=== PATIENT | female | born 1970 | race Caucasian/White ===

== ENCOUNTER → 2016-08-17 | Outpatient (REF) | payer OTHER ==
[~2016-08-17] MED LIST: ACET50TAOT PO; ACID1CAP PO; ACIDCAP PO; AMBI10TA PO; BENZ1GEL8 TOP; CELE-19 PO; CLINPOW TD; CO Q200C PO; COEN1POW PO; COLA100C PO; CYCL10TA PO; EMER1PAK PO; ESTE500T PO; FLUO10CA8 PO; FLUO20CA8 PO; FOLI1TAB2 PO; GILD1TAB PO; HYDR-4274 PO; MECL25CH PO; MELO7.5S PO; MULTCAP PO; NEUR100C PO; PERC5TAB6 PO; PERC7.5T3 PO; SKEL-29 PO; TRAM50TA2 PO; VITA20008 PO; VOLT1GEL24 TD; XANA0.25 PO; bcp PO
== END ==
LOC: M LAB REF 10:39
PROVIDERS: ATTEND Specialist
DX: Z01.419 Encounter for gynecological examination (general) (routine) without abnormal findings (principal); Z11.51 Encounter for screening for human papillomavirus (HPV); R87.610 Atypical squamous cells of undetermined significance on cytologic smear of cervix (ASC-US)

== ENCOUNTER → 2016-09-03 | Outpatient (CLI) | payer OTHER ==
--- NOTE | 2016-09-03 09:42 | REPMRS ---
Patient History The patient states she had a clinical breast exam in 08/2016. No known family history of cancer. Taking hormonal contraceptives for 13 years. Digital Woman Screen Mammo: September 03, 2016 - Exam #: [id number] Bilateral CC and MLO view(s) were taken. Technologist: Naomy Vanegas Technologist Prior study comparison: May 06, 2015, digital woman screen mammo performed at [facility]. May 05, 2014, digital woman screen mammo performed at [facility]. FINDINGS: There are scattered fibroglandular densities. There has been no change in the appearance of the mammogram from the prior studies. There is a mild amount of residual fibroglandular tissue which is fairly symmetric. There is no interval development of dominant mass, architectural distortion, or clustered microcalcification suggestive of malignancy. ASSESSMENT: BI-RADS/ACR category 1 mammogram. Negative. Recommendation Routine screening mammogram in 1 year (for women over age 40). This mammogram was interpreted with the aid of an FDA-approved computer-aided dectection system. Electronically Signed By: Errol Quintana MD 09/03/16 0942
== END ==
LOC: M WHC 08:13
PROVIDERS: ATTEND Specialist
DX: Z12.31 Encounter for screening mammogram for malignant neoplasm of breast (principal)

== ENCOUNTER → 2017-05-17 | Outpatient (CLI) | payer OTHER ==
[~2017-05-17] MED LIST changes: -CELE-19 PO; +CELE1CAP4 PO; -CO Q200C PO; +CO Q200C10 PO; -COLA100C PO; +COLA100C5 PO; -FOLI1TAB2 PO; +FOLI1TAB4 PO; -HYDR-4274 PO; +HYDR50TA70 PO; +MECL1CHW2 PO; -MECL25CH PO; +PERC5TAB12 PO; -PERC5TAB6 PO; +PERC7.5T11 PO; -PERC7.5T3 PO; -SKEL-29 PO; +SKEL800T97 PO; +VOLT1GEL15 TD; -VOLT1GEL24 TD
--- NOTE | 2017-06-05 01:23 | ECWPNPC ---
PATIENT NAME: TRESSA LI : 1970 GENDER: FEMALE VISIT DATE: 05/17/2017 DISCHARGE DATE: 05/17/17 1254 VISIT LOCKED DATE TIME: PHYSICIAN: JUNG ALLAN RESOURCE: JUNG ALLAN REASON FOR APPOINTMENT 1. LOW BACK PAIN W/C HISTORY OF PRESENT ILLNESS HISTORY OF PRESENT ILLNESS: PAIN THE PATIENT DESCRIBES THE PAIN... 46 YEAR OLD FEMALE PATIENT WITH HISTORY OF CHRONIC LOW BACK PAIN. PATIENT DESCRIBES THE PAIN ACHING, SHARP, STABBING, TENDER, SORE AND HAVING IT ALL THE TIME WITH A PAIN SCORE 6/10. 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 PATIENT WENT TO URGENT CARE FOLLOWING THE INCIDENT AND THEY STATED SHE HAD PULLED A MUSCLE. PATIENT HAS TRIED PHYSICAL THERAPY AND INJECTIONS IN THE PAST AND STATES THAT IT DOES NOT HELP. PATIENT RECEIVED A LOWER BACK SURGERY IN 2014 AND PATIENTS STATES THAT THE SURGERY DID NOT HELP WITH PAIN RELIEF. PATIENT STATES SHE CAN NOT PERFORM BASIC FUNCTIONS DUE TO THE SEVERE PAIN SUCH BEHIND DOWN TO TIE HER SHOES OR TO GROCERY SHOP. PATIENT DENIES UNEXPLAINABLE WEIGHT LOSS, FEVER, CHILLS, NEW CHANGES ON HER URINARY OR BOWEL CONTROL. FALL RISK SCREENING: SCREENING :NO FALLS IN THE PAST YEAR CURRENT MEDICATIONS TAKING HYDROXYZINE HCL 50 MG TABLET ORALLY EVERY OTHER NIGHT TAKING METROGEL 1 % GEL 1 APPLICATION TO AFFECTED AREA EXTERNALLY NEEDED FOR ROSACEA TAKING ZOLPIDEM TARTRATE 10 MG TABLET 1 TABLET AT BEDTIME NEEDED ORALLY ONCE A DAY TAKING XANAX 0.25 MG TABLET 1 TABLET ORALLY THREE TIMES A DAY NEEDED TAKING STOOL SOFTENER 100 MG CAPSULE ORALLY TWICE A DAY TAKING ASIA-C 1000-50 MG TABLET 1 TAB(S) ORALLY ONCE A DAY TAKING BACLOFEN 20 MG TABLET 1/2 TABLET ORALLY EVERY AM TAKING FOLIC ACID 800 MG ORALLY DAILY TAKING VITAMIN D 1 TABLET 1 TABLET ORALLY ONCE A DAY TAKING CELEBREX 100 MG CAPSULE 1 CAPSULE ORALLY TWICE A DAY TAKING TRAMADOL HCL 50 MG TABLET 1 TABLET NEEDED ORALLY Q8H MDD3 TAKING CYCLOBENZAPRINE HCL 10 MG TABLET 1 TABLET ORALLY THREE TIMES A DAY NEEDED TAKING LOESTRIN FE 07/20 1-20 MG-MCG TABLET 1 TABLET ORALLY DAILY TAKING GABAPENTIN 300 MG CAPSULE 1 CAPSULE ORALLY THREE TIMES A DAY TAKING BUPROPION HCL 75 MG TABLET 2 TABLET ORALLY BID TAKING MULTIVITAMINS TABLET 1 TABLET ORALLY ONCE A DAY TAKING ACETAMINOPHEN-500 MG 500 MG TABLETS 1-2 TABLETS ORALLY EVERY 6 HOURS NEEDED FOR PAIN NOT-TAKING FLUOXTEINE 40 40MG TABLET 1 TAB(S) ORAL ONCE A DAY NOT-TAKING MECLIZINE HCL 25 MG TABLET CHEWABLE 1 TABLET NEEDED ORALLY ONCE A DAY NOT-TAKING PERCOCET 7.5-325 MG TABLET 1/2 TABLET ORALLY ONCE A DAY NEEDED NOT-TAKING LOESTRIN FE 07/20 TAB TAKE ONE TABLET BY MOUTH EVERY DAY MEDICATION LIST REVIEWED AND RECONCILED WITH THE PATIENT PAST MEDICAL HISTORY HERNIATED DISC AND BONE SPUR BURSITIS L SHOULDER ROSACEA RAYNAUD'S FACET JOINT PROBLEM, ARTHRITIS. SEVERE CERVICAL DYSPLASIA, TREATED [facility] 08/2015 ALLERGIES CORTISONE: SWELLING: ALLERGY SURGICAL HISTORY ELBOW SURGERY-LEFT COLPOSCOPY WITH TRISHA 05/21/14 BACK SURGERY 07/07/14 COLPOSCOPY WITH TRISHA 06/20/15 SPINAL FUSION 10/2015 SOCIAL HISTORY GENERAL: TOBACCO USE ARE YOU A:NONSMOKER VAPORNO E-CIGARETTENO ALCOHOL SCREENING HOW OFTEN DID YOU HAVE A DRINK CONTAINING ALCOHOL IN THE PAST YEAR?2 TO 4 TIMES A MONTH (2 POINTS) HOW MANY DRINKS DID YOU HAVE ON A TYPICAL DAY WHEN YOU WERE DRINKING IN THE PAST YEAR?1 OR 2 DRINKS (0 POINTS) HOW OFTEN DID YOU HAVE 6 OR MORE DRINKS ON ON OCCASION IN THE PAST YEAR?NEVER (0 POINTS) POINTS0 DID YOU HAVE A DRINK CONTAINING ALCOHOL IN THE PAST YEAR?YES INTERPRETATIONNEGATIVE RECREATIONAL DRUG USE PATIENT DENIES ABUSE OR MISSUSED OF ANY MEDICATION. PATIENT DENIES USE OF ANY ILLEGAL SUBSTANCE INCLUDING MARIJUANA OR COCAINE. DRUG USE?NO RELIGIOUS [id number] YARSANISM LANGUAGE LANGUAGES SPOKEN:[place] EDUCATION LEVEL OF EDUCATION:HIGH SCHOOL LEARNING BARRIERS / SPECIAL NEEDS ABILITY TO UNDERSTAND VERBAL INSTRUCTIONS GOOD :, ABILITY TO UNDERSTAND WRITTEN INSTRUCTIONS GOOD , KNOWLEDGE OF EDUCATIONAL NEEDS/TREATMENT PLAN GOOD , ADVENTISM? NO , PLANS TO OVERCOME BARRIERS WRITTEN MATERIALS , LEARNING PREFERENCE NO PREFERENCE , ORIENTED TO PLAN OF CARE: PATIENT , PAIN MANAGEMENT PATIENT , TEACHING MATERIALS DEMONSTRATION/VERBAL INSTRUCTION , RESPONSE TO EDUCATION EXPLAINES ACCURATELY/VERBALIZES UNDERSTANDING , TEACHING MATERIALS DEMONSTRATION/VERBAL INSTRUCTION , RESPONSE TO EDUCATION EXPLAINS ACCURATELY/VERBALIZES UNDERSTANDING . PAIN CLINIC PFS, CLERGY, PUBLIC HEALTH REFERRALS PFS REFERRAL NEEDED?NO CLERGY REFERRAL NEEDED?NO PUBLIC HEALTH REFERRAL NEEDED?NO WAS THE PROVIDER NOTIFIED OF ANY PERTINENT INFO?NO HAS THE PATIENT BEEN EDUCATED REGARDING HIS/HER PLAN OF CARE?YES HAS THE PATIENT BEEN EDUCATED REGARDING PAIN, THE RISK FOR PAIN, THE IMPORTANCE OF EFFECTIVE PAIN MANAGEMENT, AND THE PAIN ASSESSMENT PROCESS?YES ADVANCE DIRECTIVES HEALTH CARE PROXY?NO WOULD YOU LIKE MORE INFORMATION?NO DO YOU HAVE A DNR?NO WOULD YOU LIKE MORE INFORMATION?NO LIVING WILL?NO WOULD YOU LIKE MORE INFORMATION?NO POWER OF EDGE STRIPPER?NO HOSPITALIZATION/MAJOR DIAGNOSTIC PROCEDURE SURGERY RELATED REVIEW OF SYSTEMS REVIEWED BY: PROVIDER: JUNG ALLAN MD . CONSTITUTIONAL: ANY CHANGE IN YOUR MEDICAL CONDITION? NO . CHILLS NO . FEVER NO . INFECTION: DO YOU HAVE NEW INFECTIONS? NO . DO YOU HAVE HISTORY OF MRSA? NO . MUSCULOSKELETAL: ANY NEW PATTERNS OF PAIN OR NUMBNESS? NO . GASTROENTEROLOGY: ANY NEW CHANGE IN BOWEL CONTROL? NO . GENITOURINARY: ANY NEW CHANGE IN BLADDER CONTROL? NO . IS THERE A CHANCE YOU COULD BE ? NO . HEMATOLOGY/LYMPH: DO YOU TAKE ANY BLOOD THINNERS? (FOR EXAMPLE- COUMADIN, PLAVIX, AGGRENOX, PLATEL, PRADAXA, OR XARELTO) NO . WHEN WAS YOUR LAST DOSE? DATE: TIME: . NEUROLOGY: HAVE YOU FALLEN IN THE PAST 6 MONTHS? NO . ANY NEW EXTREMITY NUMBNESS OR WEAKNESS? NO . CARDIOLOGY: DO YOU HAVE A PACEMAKER OR DEFIBRILLATOR? NO . RESPIRATORY: HAVE YOU BEEN SICK IN THE PAST WEEK? NO . FEVER NO . FLU LIKE SYMPTOMS? NO . COUGH NO . INTEGUMENTARY: DO YOU HAVE ANY RASHES OR OPEN SORES? NO . ALLERGIC/IMMUNO: ARE YOU ALLERGIC TO SHELLFISH OR IV DYE? NO . ANY NEW ALLERGIES? NO . PSYCHIATRIC: DO YOU HAVE THOUGHTS OF HURTING YOURSELF OR SOMEONE ELSE? NO . ARE YOU ABUSED, NEGLECTED, OR IN AN UNSAFE ENVIRONMENT? NO . ENDOCRINOLOGY: ARE YOU DIABETIC? NO . OTHER: DO YOU NEED ANY PRESCRIPTIONS? NO . IF YES, PLEASE LIST: ____ . ANY NEW PROBLEMS WITH YOUR MEDICATIONS? NO . WHEN DID YOU LAST EAT? ____ . WHEN DID YOU LAST DRINK? ____ . WHAT DID YOU LAST DRINK? ____ . NAME OF PERSON DRIVING YOU HOME? ____ . DO YOU HAVE ANY OTHER QUESTIONS OR CONCERNS NO . VITAL SIGNS WT 126.0 LBS, HT 61 IN, BMI 23.80 INDEX, BP 129/76 MM HG, HR 70 /MIN, RR 16 /MIN, TEMP 98.7 F, OXYGEN SAT % 99%, NA INITIALS TL 1123, REVIEWED BY: EM. EXAMINATION : PATIENT IS ALERT O X 3 AND COOPERATIVE. TENDERNESS IN THE LOWER BACK AND PARASPINAL MUSCLE GROUP. PATIENT LIMPING FROM THE RIGHT LEG. RIGHT LEG IS WEAKER THEN THE LEFT AT EXTENSION AND FLEXION. PATIENT ABLE TO FLEX THE BACK 20 DEGREES AND EXTEND 5 DEGREES. POSITIVE FOR PAIN AT STRAIGHT LEG RAISES AT RIGHT 30 DEGREES AND LEFT 35 DEGREES. MRI OF THE LUMBAR SPINE DONE ON 12/27/2016 SHOWS MULTILEVEL DEGENERATIVE CHANGES WELL DISC BULGES AT L2-L3, L4-L5, AND L5-S1 AND A TARLOV CYST AT S2. ASSESSMENTS INTERVERTEBRAL DISC DISORDER WITH RADICULOPATHY OF LUMBAR REGION - M51.16 (PRIMARY) INTERVERTEBRAL DISC DISORDER WITH RADICULOPATHY OF LUMBOSACRAL REGION - M51.17 POSTLAMINECTOMY SYNDROME, NOT ELSEWHERE CLASSIFIED - M96.1 TREATMENT INTERVERTEBRAL DISC DISORDER WITH RADICULOPATHY OF LUMBAR REGION NOTES: WE DISCUSSED SEVERAL ISSUES WITH MRS. LI'S PAIN MANAGEMENT CASE. AT THIS TIME THE PATIENT WILL CONTINUE WITH THE SAME MEDICATION REGIME BEFORE. DUE TO THE PATIENT STATING SHE HAS HAD REACTIONS TO STEROIDS I WOULD LIKE HER TO BE REFERRED TO A [employer] LAUNCH COMMANDER TO BE TESTED SPECIFICALLY FOR KENALOG, DEPO MEDROL, AND DEXAMETHASONE. WE DISCUSSED IN DETAIL THE DCS AND AT THIS TIME THE PATIENT WOULD LIKE TO PROCEED DUE TO NOT GETTING RELIEF FROM INJECTIONS. PATIENT IS AWARE SHE WILL NEED TO HAVE A PSYCHOLOGICAL TEST AND A THORACIC MRI. I AM REQUESTING A THORACIC MRI TO MAKE SURE THE LEADS CAN PASS THROUGH THE SPINE. PATIENT WILL FOLLOW UP IN 2 MONTHS TO DISCUSS THE MRI'S AND PSYCHOLOGICAL EVALUATION. INSTRUCTIONS WERE GIVEN, QUESTIONS WERE ANSWERED, PATIENT REPORTS UNDERSTANDING AND AGREES WITH THE PLAN. I, ISAMAR BOX, DOCUMENTED THE ABOVE INFORMATION ACTING A SCRIBE FOR DR. ALLAN. I HAVE REVIEWED THE ABOVE DOCUMENT, WRITTEN BY ISAMAR FULTON AND I VERIFY THAT IT IS ACCURATE. PROCEDURES PN WORKMANS' COMP OPINION IN YOUR OPINION, WAS THE INCIDENT THAT THE PATIENT DESCRIBED THE COMPETENT MEDICAL CAUSE OF THIS INJURY/ILLNESS? YES ARE THE PATIENT'S COMPLAINTS CONSISTENT WITH HIS/HER HISTORY OF THE INJURY/ILLNESS? YES IS THE PATIENT'S HISTORY OF THE INJURY/ILLNESS CONSISTENT WITH YOUR OBJECTIVE FINDING? YES WHAT IS THE PERCENTAGE OF TEMPORARY IMPAIRMENT? MODERATE TO MARKED = 66.7% IS THE PATIENT WORKING? NO DOCTOR ON SITE: JUNG JOY MD PROCEDURE CODES FA211 ESTABILISHED [facility]IENT [facility] FACILITY CHARGE G8427 DOC MEDS VERIFIED W/PT OR RE G8730 PAIN ASSESS POS TOOL F/U PLAN DOC DISPOSITION & COMMUNICATION FOLLOW UP 2 MONTHS ELECTRONICALLY SIGNED BY JUNG ALLAN MD ON 06/03/2017 AT 06:24 PM EST DISCLAIMER : THIS IS A VISIT SUMMARY EXTRACTED FROM THE [employer] CHART. IT IS NOT A COPY OF THE [employer] PROGRESS NOTE. ROXIE
== END ==
LOC: M PAIN 11:15
PROVIDERS: ATTEND Anesthesiology
DX: M51.16 Intervertebral disc disorders with radiculopathy, lumbar region (principal); M51.17 Intervertebral disc disorders with radiculopathy, lumbosacral region; M96.1 Postlaminectomy syndrome, not elsewhere classified; M54.5 Low back pain; G89.29 Other chronic pain; Z79.899 Other long term (current) drug therapy; Z79.891 Long term (current) use of opiate analgesic; Z88.8 Allergy status to other drugs, medicaments and biological substances

== ENCOUNTER → 2017-07-09 | Outpatient (CLI) | payer OTHER | LOC: M PAIN 08:45 | DX: G89.29 Other chronic pain (principal); M96.1 Postlaminectomy syndrome, not elsewhere classified; M54.16 Radiculopathy, lumbar region; I73.00 Raynaud's syndrome without gangrene; L71.9 Rosacea, unspecified; Z98.1 Arthrodesis status; Z79.899 Other long term (current) drug therapy; Z88.8 Allergy status to other drugs, medicaments and biological substances; Z79.891 Long term (current) use of opiate analgesic | CPT/HCPCS: G0463 ==

== ENCOUNTER → 2017-08-06 | Outpatient (CLI) | payer OTHER | LOC: M PAIN 08:30 | DX: M96.1 Postlaminectomy syndrome, not elsewhere classified (principal); M54.16 Radiculopathy, lumbar region; I73.00 Raynaud's syndrome without gangrene; Z79.899 Other long term (current) drug therapy; Z88.8 Allergy status to other drugs, medicaments and biological substances | CPT/HCPCS: G0463 ==

== ENCOUNTER → 2017-08-22 | Outpatient (REF) | payer MEDICAID ==
[2017-08-27 08:07] LABS: HPV HYBRID CAPTURE II Negative (Negative)
== END ==
LOC: M LAB REF 13:22
DX: Z12.4 Encounter for screening for malignant neoplasm of cervix (principal)
CPT/HCPCS: G0123

== ENCOUNTER → 2017-09-03 | Outpatient (CLI) | payer OTHER | LOC: M PAIN 09:30 | DX: M96.1 Postlaminectomy syndrome, not elsewhere classified (principal); M54.16 Radiculopathy, lumbar region; Z79.891 Long term (current) use of opiate analgesic; Z79.899 Other long term (current) drug therapy; Z88.8 Allergy status to other drugs, medicaments and biological substances; Z86.79 Personal history of other diseases of the circulatory system; Z87.19 Personal history of other diseases of the digestive system | CPT/HCPCS: G0463 ==

== ENCOUNTER → 2017-09-05 | Outpatient (CLI) | payer OTHER | LOC: M WHC 06:40 | DX: Z12.31 Encounter for screening mammogram for malignant neoplasm of breast (principal) | CPT/HCPCS: 77067 ==

== ENCOUNTER → 2017-10-01 | Outpatient (CLI) | payer OTHER | LOC: M PAIN 08:30 | DX: M96.1 Postlaminectomy syndrome, not elsewhere classified (principal); M54.16 Radiculopathy, lumbar region; I73.00 Raynaud's syndrome without gangrene; L71.9 Rosacea, unspecified; Z79.899 Other long term (current) drug therapy; Z88.8 Allergy status to other drugs, medicaments and biological substances | CPT/HCPCS: G0463 ==

== ENCOUNTER → 2017-10-22 | Outpatient (CLI) | payer OTHER ==
[2017-10-22 09:06] LABS: BASO % 0.7 % (0.0-1.0); EOS # 0.1 10^3/uL (0.0-0.50); EOS % 1.8 % (0.0-3.0); HEMATOCRIT 41.1 % (36.0-47.0); IMMATURE GRANULOCYTE % 0.5 % (0-3.0); LYMPH # 0.8 10^3/uL (1.5-4.5); LYMPH % 13.7 % (24.0-44.0); MEAN CORPUSCULAR HEMOGLOBIN 33.7 pg (27.0-33.0); MEAN CORPUSCULAR HGB CONC 34.1 g/dl (32.0-36.5); MONO # 0.7 10^3/uL (0.0-0.8); NEUTROPHILS # 4.4 10^3/uL (1.8-7.7); NEUTROPHILS % 72.3 % (36.0-66.0); PLATELET COUNT, AUTOMATED 314 10^3/uL (150-450); RED BLOOD COUNT 4.15 10^6/uL (4.00-5.40); RED CELL DISTRIBUTION WIDTH 11.1 % (11.5-14.5); WHITE BLOOD COUNT 6.1 10^3/uL (4.0-10.0)
[2017-10-22 11:15] LABS: ALBUMIN 3.4 GM/DL (3.2-5.2); ALKALINE PHOSPHATASE 54 U/L (45-117); ALT/SGPT 21 U/L (12-78); ANION GAP 6 MEQ/L (8-16); AST/SGOT 20 U/L (7-37); BILIRUBIN,TOTAL 0.5 MG/DL (0.2-1.0); BLOOD UREA NITROGEN 21 MG/DL (7-18); CALCIUM LEVEL 8.7 MG/DL (8.5-10.1); CARBON DIOXIDE LEVEL 26 MEQ/L (21-32); CHLORIDE LEVEL 110 MEQ/L (98-107); CHOLESTEROL LEVEL 144 MG/DL (<200); CHOLESTEROL RISK RATIO 2.666 (<5); CREATININE FOR GFR 0.77 MG/DL (0.55-1.30); GLOMERULAR FILTRATION RATE > 60.0 (>58); GLUCOSE, FASTING 69 MG/DL (70-100); HDL CHOLESTEROL 54 MG/DL (>40); LDL CHOLESTEROL 71.2 MG/DL (<100); NON-HDL-C 90 MG/DL; POTASSIUM SERUM 4.4 MEQ/L (3.5-5.1); SODIUM LEVEL 142 MEQ/L (136-145); TOTAL PROTEIN 6.8 GM/DL (6.4-8.2); TRIGLYCERIDES LEVEL 94 MG/DL (<150)
== END ==
LOC: M WUC 08:10
DX: H35.60 Retinal hemorrhage, unspecified eye (principal); Z13.220 Encounter for screening for lipoid disorders
CPT/HCPCS: 80053

== ENCOUNTER → 2017-11-12 | Outpatient (CLI) | payer OTHER | LOC: M PAIN 08:30 | DX: G89.29 Other chronic pain (principal); M96.1 Postlaminectomy syndrome, not elsewhere classified; M54.16 Radiculopathy, lumbar region; I73.00 Raynaud's syndrome without gangrene; M75.52 Bursitis of left shoulder; Z79.891 Long term (current) use of opiate analgesic; Z79.899 Other long term (current) drug therapy; Z98.1 Arthrodesis status; Z88.8 Allergy status to other drugs, medicaments and biological substances | CPT/HCPCS: G0463 ==

== ENCOUNTER → 2017-12-17 | Outpatient (CLI) | payer OTHER | LOC: M PAIN 14:15 | DX: M46.96 Unspecified inflammatory spondylopathy, lumbar region (principal); M47.816 Spondylosis without myelopathy or radiculopathy, lumbar region; M96.1 Postlaminectomy syndrome, not elsewhere classified; G89.29 Other chronic pain; L71.9 Rosacea, unspecified; I73.00 Raynaud's syndrome without gangrene; Z79.899 Other long term (current) drug therapy; Z88.8 Allergy status to other drugs, medicaments and biological substances | CPT/HCPCS: G0463 ==

== ENCOUNTER → 2018-01-29 | Outpatient (CLI) | payer OTHER ==
[~2018-01-29] MED LIST changes: -ACET50TAOT PO; -ACID1CAP PO; -ACIDCAP PO; -AMBI10TA PO; -BENZ1GEL8 TOP; +BUPIVACAINE HCL 0.25% 30 ML VIAL As Ordered; -CELE1CAP4 PO; -CLINPOW TD; -CO Q200C10 PO; -COEN1POW PO; -COLA100C5 PO; -CYCL10TA PO; -EMER1PAK PO; -ESTE500T PO; -FLUO10CA8 PO; -FLUO20CA8 PO; -FOLI1TAB4 PO; -GILD1TAB PO; -HYDR50TA70 PO; +ISOVUE-M 300 61% 15ML VIAL (Q9967) As Ordered; +LIDOCAINE 1% SDV INJ 30 ML VIAL As Ordered; -MECL1CHW2 PO; -MELO7.5S PO; +MIDAZOLAM INJ 2 MG/2 ML VIAL (J2250) As Ordered; -MULTCAP PO; -NEUR100C PO; -PERC5TAB12 PO; -PERC7.5T11 PO; -SKEL800T97 PO; -TRAM50TA2 PO; -VITA20008 PO; -VOLT1GEL15 TD; -XANA0.25 PO; -bcp PO; +dexameTHASONE 10 MG/1 ML VIAL PRES.FREE (J1100) As Ordered; +fentaNYL 100 MCG/2 ML INJECTION (J3010) As Ordered
== END ==
LOC: M PAIN 13:00
DX: G89.29 Other chronic pain (principal); M47.816 Spondylosis without myelopathy or radiculopathy, lumbar region; M47.817 Spondylosis without myelopathy or radiculopathy, lumbosacral region; I73.00 Raynaud's syndrome without gangrene; L71.9 Rosacea, unspecified; Z79.899 Other long term (current) drug therapy; Z88.8 Allergy status to other drugs, medicaments and biological substances
CPT/HCPCS: J1100

== ENCOUNTER → 2018-02-12 | Outpatient (CLI) | payer OTHER | LOC: M PAIN 15:15 | DX: M46.1 Sacroiliitis, not elsewhere classified (principal); M96.1 Postlaminectomy syndrome, not elsewhere classified; I73.00 Raynaud's syndrome without gangrene; L71.9 Rosacea, unspecified; Z79.899 Other long term (current) drug therapy; Z88.8 Allergy status to other drugs, medicaments and biological substances | CPT/HCPCS: G0463 ==

== ENCOUNTER → 2018-05-15 | Outpatient (CLI) | payer OTHER | LOC: M PAIN 10:00 | DX: G89.29 Other chronic pain (principal); M46.1 Sacroiliitis, not elsewhere classified; I73.00 Raynaud's syndrome without gangrene; L71.9 Rosacea, unspecified; Z79.899 Other long term (current) drug therapy; Z88.8 Allergy status to other drugs, medicaments and biological substances | CPT/HCPCS: J1100 ==

== ENCOUNTER → 2018-05-27 | Outpatient (CLI) | payer OTHER | LOC: M PAIN 08:45 | DX: M46.1 Sacroiliitis, not elsewhere classified (principal); M96.1 Postlaminectomy syndrome, not elsewhere classified; I73.00 Raynaud's syndrome without gangrene; L71.9 Rosacea, unspecified; Z79.899 Other long term (current) drug therapy; Z88.8 Allergy status to other drugs, medicaments and biological substances | CPT/HCPCS: G0463 ==

== ENCOUNTER → 2018-07-08 | Outpatient (CLI) | payer OTHER ==
[~2018-07-08] MED LIST changes: +ACET500T15 PO; +ACID1CAP PO; +ACIDCAP PO; +AMBI10TA PO; +BENZ1GEL8 TOP; -BUPIVACAINE HCL 0.25% 30 ML VIAL As Ordered; +CELE1CAP4 PO; +CLINPOW TD; +CO Q200C10 PO; +COEN1POW PO; +COLA100C5 PO; +CYCL10TA PO; +EMER1PAK PO; +ESTE500T PO; +FLUO10CA8 PO; +FLUO20CA8 PO; +FOLI1TAB11 PO; +GILD1TAB PO; +HYDR50TA70 PO; -ISOVUE-M 300 61% 15ML VIAL (Q9967) As Ordered; -LIDOCAINE 1% SDV INJ 30 ML VIAL As Ordered; +MECL1CHW2 PO; +MELO7.5S PO; -MIDAZOLAM INJ 2 MG/2 ML VIAL (J2250) As Ordered; +MULTCAP PO; +NEUR100C PO; +PERC5TAB12 PO; +PERC7.5T11 PO; +SKEL800T97 PO; +TRAM50TA2 PO; +VITA20008 PO; +VOLT1GEL15 TD; +XANA0.25 PO; +bcp PO; -dexameTHASONE 10 MG/1 ML VIAL PRES.FREE (J1100) As Ordered; -fentaNYL 100 MCG/2 ML INJECTION (J3010) As Ordered
--- NOTE | 2018-07-08 11:43 | REP ---
MR LUMBAR SPINE WITHOUT CONTRAST: HISTORY: Back pain. Comparison 12/27/2017. Decreased signal intensity on T2-weighted images is present in the L3-4 and L4-5 intervertebral discs. The disc is decreased in height. These findings are consistent with disc degeneration. There is no disc bulge or herniation at the L1-2 level. The L1 nerves exit the neural foramina without compression. A diffuse disc bulge is present at the L2-3 level. There is hypertrophy of the ligamenta flava and posterior articulating facets. These findings produce minimal central canal stenosis. The L2 nerves exit the neural foramina without compression. The patient is status post L3-5 posterior spinal fusion and laminectomy. Metal hardware is present. There is no disc bulge or herniation at the L3-4 level. There is hypertrophy of the posterior articulating facets. The L3 nerves exit the neural foramina without compression. There is no disc bulge or herniation at the L4-5 level. There is hypertrophy of the posterior articulating facets. The L4 nerves exit the neural foramina without compression. A diffuse disc bulge is present at the L5-S1 level. There is minimal compression of the thecal sac. There is hypertrophy of the posterior articulating facets. The L5 nerves exit the neural foramina without compression. The conus medullaris is normal in appearance terminating at the level of the L1-2 intervertebral disc. A Tarlov cyst is present at the S2 level. Normal signal intensity is present in the lumbar vertebral bodies. There is no subluxation. A small fluid collection consistent with a seroma is present in the midline posterior subcutaneous tissue. This measures 1 cm in transverse by 0.3 cm in AP by 5 cm in cephalocaudal dimensions. IMPRESSION: 1. Minimal central canal stenosis at the L2-3 level secondary to disc bulge, ligamentous and facet hypertrophy. 2. The patient is status post L3-5 posterior spinal fusion and laminectomy. There is anatomic alignment. 3. Diffuse disc bulge at the L5-S1 level with minimal thecal sac compression. 4. There is a small seroma in the posterior subcutaneous tissue that is slightly decreased in size compared to the previous study. Electronically Signed by Mckinley Steve MD 07/08/2018 11:59 A
--- NOTE | 2018-07-08 11:49 | REP ---
MR THORACIC SPINE WITHOUT CONTRAST: HISTORY: Back pain. COMPARISON: 06/25/2017. A small right paracentral disc protrusion is present at the T2-3 level. There is minimal effacement of the thecal sac without spinal cord compression. The T2 neural foramina are patent. A small central disc protrusion is present at the T3-4 level. There is minimal effacement of the thecal sac without spinal cord compression. The T3 neural foramina are patent. A small left paracentral disc protrusion is present at the T4-5 level. There is minimal effacement of the thecal sac without spinal cord compression. The T4 neural foramina are patent. There is no other disc bulge or herniation. The remaining neural foramina are patent. The spinal cord is normal in signal intensity. Increased signal intensity on T2-weighted images is present in the superior endplate of the T8 vertebral body. This represents degenerative change. Normal signal intensity is present in the remaining thoracic vertebral bodies. IMPRESSION: Small disc protrusions at the T2-3 through T4-5 levels without spinal cord compression. The disc protrusion at the T2-3 level is a new finding. Electronically Signed by Mckinley Steve MD 07/08/2018 11:57 A
== END ==
LOC: M RAD 09:21
PROVIDERS: ATTEND Nurse Practitioner Family
DX: M96.1 Postlaminectomy syndrome, not elsewhere classified (principal); M51.06 Intervertebral disc disorders with myelopathy, lumbar region

== ENCOUNTER → 2018-08-04 | Outpatient (CLI) | payer OTHER ==
--- NOTE | 2018-08-16 23:59 | ECWPNPC ---
PATIENT NAME: TRESSA LI : 1970 GENDER: FEMALE VISIT DATE: 08/04/2018 DISCHARGE DATE: 08/04/18 1610 VISIT LOCKED DATE TIME: PHYSICIAN: JUNG ALLAN MD RESOURCE: JUNG ALLAN MD REASON FOR APPOINTMENT 1. W/C DCS HISTORY OF PRESENT ILLNESS HISTORY OF PRESENT ILLNESS: PAIN THE PATIENT DESCRIBES THE PAIN... 47 YEAR OLD FEMALE PATIENT WITH A HISTORY OF CHRONIC LOW BACK PAIN. THE PATIENT DESCRIBES THE PAIN ACHING, BURNING, SORE, SHARP, AND CONTINUOUS WITH A PAIN SCORE OF 6-8/10 DEPENDING ON PHYSICAL ACTIVITY. THE PATIENT WAS HURT IN A WORK RELATED INJURY ON 10/12/2013 WHILE WORKING AT [employer] WHEN SHE WAS MOVING A BUCKET OF WATER AND INJURED HER BACK. THE PATIENT SAYS THE PAIN STARTS IN HER LOW BACK AREA AND RADIATES DOWN INTO HER RIGHT LEG. THE PATIENT HAS A HISTORY OF MULTIPLE BACK SURGERIES, BUT SAYS HER PAIN HAS PERSISTED. THE PATIENT HAS TRIED PHYSICAL THERAPY, MEDICATION MANAGEMENT, AND INJECTION THERAPY, BUT SAYS NONE OF THESE HAVE HELPED GIVE HER SIGNIFICANT PAIN RELIEF SO SHE IS INTERESTED IN A DCS TRIAL. PATIENT DENIES UNEXPLAINABLE WEIGHT LOSS, FEVER, CHILLS, NEW CHANGES ON HER URINARY OR BOWEL CONTROL. FALL RISK SCREENING: SCREENING :NO FALLS IN THE PAST YEAR CURRENT MEDICATIONS TAKING METROGEL 1 % GEL 1 APPLICATION TO AFFECTED AREA EXTERNALLY NEEDED FOR ROSACEA TAKING LOESTRIN FE 07/20 TAB TAKE ONE TABLET BY MOUTH EVERY DAY TAKING ZOLPIDEM TARTRATE 10 MG TABLET 0.5 TABLET AT BEDTIME NEEDED ORALLY ONCE A DAY TAKING XANAX 0.25 MG TABLET 1 TABLET ORALLY THREE TIMES A DAY NEEDED TAKING ASIA-C 1000-50 MG TABLET 1 TAB(S) ORALLY ONCE A DAY TAKING FOLIC ACID 800 MG ORALLY DAILY TAKING VITAMIN D 1 TABLET 1 TABLET ORALLY ONCE A DAY TAKING BUPROPION HCL 75 MG TABLET 2 TABLET ORALLY BID TAKING MULTIVITAMINS TABLET 1 TABLET ORALLY ONCE A DAY TAKING ACETAMINOPHEN-500 MG 500 MG TABLETS 1-2 TABLETS ORALLY EVERY 6 HOURS NEEDED FOR PAIN TAKING STOOL SOFTENER 100 MG CAPSULE 1 ORALLY ONCE PER DAY PRN TAKING CYCLOBENZAPRINE HCL 10 MG TABLET 0.5 TABLET ORALLY THREE TIMES A DAY NEEDED TAKING CELEBREX 100 MG CAPSULE 1 ORALLY BID TAKING GABAPENTIN 300 MG CAPSULE 2 CAPSULE ORALLY TWICE DAILY TAKING TRAMADOL HCL 50 MG TABLET 1 TABLET NEEDED ORALLY Q8H MDD3 TAKING MELATONIN 10 MG TABLET DISINTEGRATING 1 CAPSULE AT BEDTIME NEEDED WITH FOOD ORALLY DAILY NOT-TAKING BACLOFEN 20 MG TABLET 1/2 TABLET ORALLY EVERY AM, NOTES: NOT AUTH NOT-TAKING HYDROXYZINE HCL 50 MG TABLET ORALLY EVERY OTHER NIGHT NOT-TAKING FLUOXTEINE 40 40MG TABLET 1 TAB(S) ORAL ONCE A DAY NOT-TAKING PERCOCET 7.5-325 MG TABLET 1/2 TABLET ORALLY ONCE A DAY NEEDED NOT-TAKING LOESTRIN FE 07/20 1-20 MG-MCG TABLET 1 TABLET ORALLY DAILY NOT-TAKING LIDODERM 5 % PATCH 1 PATCH RIGHT LOW BACK MUSCLE AREA EXTERNALLY ONCE A DAY NOT-TAKING MECLIZINE HCL 25 MG TABLET CHEWABLE 1 TABLET NEEDED ORALLY ONCE A DAY NOT-TAKING MOVANTIK 25 MG TABLET 1 TABLET IN THE MORNING ORALLY ONCE A DAY MEDICATION LIST REVIEWED AND RECONCILED WITH THE PATIENT PAST MEDICAL HISTORY HERNIATED DISC AND BONE SPUR BURSITIS L SHOULDER ROSACEA RAYNAUD'S FACET JOINT PROBLEM, ARTHRITIS. SEVERE CERVICAL DYSPLASIA, TREATED [facility] 08/2015 ALLERGIES CORTISONE: SWELLING: ALLERGY SURGICAL HISTORY ELBOW SURGERY-LEFT COLPOSCOPY WITH TRISHA 05/21/14 BACK SURGERY 07/07/14 COLPOSCOPY WITH TRISHA 06/20/15 SPINAL FUSION 10/2015 FAMILY HISTORY FATHER: ALIVE 74 YRS, HYPERTENSION, BORDERLINE DIABETES, DIAGNOSED WITH HYPERTENSION MOTHER: ALIVE 71 YRS, DIABETES, HYPERTENSION, ?ATRIAL FIBRILLATION. NO OSTEOPOROSIS, NO FX., DIAGNOSED WITH DIABETES, HYPERTENSION, HEART DISEASE, CANCER 2 BROTHER(S) , 2 SISTER(S) . 1DAUGHTER(S) - HEALTHY. ONE SISTER/ONE BROTHER WITH HYPERTENSION. DENIES FAMILY HX OF B/C/O CANCERS. SOCIAL HISTORY GENERAL: TOBACCO USE ARE YOU A:NONSMOKER VAPORNO E-CIGARETTENO ALCOHOL SCREENING HOW OFTEN DID YOU HAVE A DRINK CONTAINING ALCOHOL IN THE PAST YEAR?2 TO 4 TIMES A MONTH (2 POINTS) HOW MANY DRINKS DID YOU HAVE ON A TYPICAL DAY WHEN YOU WERE DRINKING IN THE PAST YEAR?1 OR 2 DRINKS (0 POINTS) HOW OFTEN DID YOU HAVE 6 OR MORE DRINKS ON ON OCCASION IN THE PAST YEAR?NEVER (0 POINTS) POINTS0 DID YOU HAVE A DRINK CONTAINING ALCOHOL IN THE PAST YEAR?YES INTERPRETATIONNEGATIVE RECREATIONAL DRUG USE PATIENT DENIES ABUSE OR MISSUSED OF ANY MEDICATION. PATIENT DENIES USE OF ANY ILLEGAL SUBSTANCE INCLUDING MARIJUANA OR COCAINE. DRUG USE?NO ORIENTAL ORTHODOX [id number] [employer] LANGUAGE LANGUAGES SPOKEN:RUSSIAN EDUCATION LEVEL OF EDUCATION:HIGH SCHOOL LEARNING BARRIERS / SPECIAL NEEDS ABILITY TO UNDERSTAND VERBAL INSTRUCTIONS GOOD :, ABILITY TO UNDERSTAND WRITTEN INSTRUCTIONS GOOD , KNOWLEDGE OF EDUCATIONAL NEEDS/TREATMENT PLAN GOOD , CONFUCIANIST? NO , PLANS TO OVERCOME BARRIERS WRITTEN MATERIALS , LEARNING PREFERENCE NO PREFERENCE , ORIENTED TO PLAN OF CARE: PATIENT , PAIN MANAGEMENT PATIENT , TEACHING MATERIALS DEMONSTRATION/VERBAL INSTRUCTION , RESPONSE TO EDUCATION EXPLAINES ACCURATELY/VERBALIZES UNDERSTANDING , TEACHING MATERIALS DEMONSTRATION/VERBAL INSTRUCTION , RESPONSE TO EDUCATION EXPLAINS ACCURATELY/VERBALIZES UNDERSTANDING . OCCUPATION: DISABLED. DIET: REGULAR. EXERCISE: WALKS, AT LEAST 3X/WEEK. MARITAL STATUS: .. PAIN CLINIC PFS, CLERGY, PUBLIC HEALTH REFERRALS PFS REFERRAL NEEDED?NO CLERGY REFERRAL NEEDED?NO PUBLIC HEALTH REFERRAL NEEDED?NO WAS THE PROVIDER NOTIFIED OF ANY PERTINENT INFO?NO HAS THE PATIENT BEEN EDUCATED REGARDING HIS/HER PLAN OF CARE?YES HAS THE PATIENT BEEN EDUCATED REGARDING PAIN, THE RISK FOR PAIN, THE IMPORTANCE OF EFFECTIVE PAIN MANAGEMENT, AND THE PAIN ASSESSMENT PROCESS?YES ADVANCE DIRECTIVE ADVANCE DIRECTIVE DISCUSSED WITH PATIENT:YES HCP - DENIA LI (DAUGHTER) REVIEWED WITH PATIENT 08/04/18 1441 JS. HOSPITALIZATION/MAJOR DIAGNOSTIC PROCEDURE SURGERY RELATED REVIEW OF SYSTEMS REVIEWED BY: PROVIDER: JUNG ALLAN MD . CONSTITUTIONAL: ANY CHANGE IN YOUR MEDICAL CONDITION? NO . CHILLS NO . FEVER NO . INFECTION: DO YOU HAVE NEW INFECTIONS? NO . DO YOU HAVE HISTORY OF MRSA? NO . MUSCULOSKELETAL: ANY NEW PATTERNS OF PAIN OR NUMBNESS? NO . GASTROENTEROLOGY: ANY NEW CHANGE IN BOWEL CONTROL? NO . GENITOURINARY: ANY NEW CHANGE IN BLADDER CONTROL? NO . IS THERE A CHANCE YOU COULD BE ? NO . HEMATOLOGY/LYMPH: DO YOU TAKE ANY BLOOD THINNERS? (FOR EXAMPLE- COUMADIN, PLAVIX, AGGRENOX, PLATEL, PRADAXA, OR XARELTO) NO . WHEN WAS YOUR LAST DOSE? DATE: TIME: . NEUROLOGY: HAVE YOU FALLEN IN THE PAST 12 MONTHS? NO . ANY NEW EXTREMITY NUMBNESS OR WEAKNESS? NO . CARDIOLOGY: DO YOU HAVE A PACEMAKER OR DEFIBRILLATOR? NO . RESPIRATORY: HAVE YOU BEEN SICK IN THE PAST WEEK? NO . FEVER NO . FLU LIKE SYMPTOMS? NO . COUGH NO . INTEGUMENTARY: DO YOU HAVE ANY RASHES OR OPEN SORES? NO . ALLERGIC/IMMUNO: ARE YOU ALLERGIC TO IV DYE? NO . ANY NEW ALLERGIES? NO . PSYCHIATRIC: DO YOU HAVE THOUGHTS OF HURTING YOURSELF OR SOMEONE ELSE? NO . ARE YOU ABUSED, NEGLECTED, OR IN AN UNSAFE ENVIRONMENT? NO . ENDOCRINOLOGY: ARE YOU DIABETIC? NO . OTHER: DO YOU NEED ANY PRESCRIPTIONS? NO . IF YES, PLEASE LIST: ____ . ANY NEW PROBLEMS WITH YOUR MEDICATIONS? NO . WHEN DID YOU LAST EAT? ____ . WHEN DID YOU LAST DRINK? ____ . WHAT DID YOU LAST DRINK? ____ . NAME OF PERSON DRIVING YOU HOME? ____ . DO YOU HAVE ANY OTHER QUESTIONS OR CONCERNS NO . VITAL SIGNS WT 128.4 LBS, HT 61 IN, BMI 24.26 INDEX, BP 138/90 MM HG, HR 80 /MIN, RR 16 /MIN, TEMP 97.9 F, OXYGEN SAT % 98%, SAFE IN ENV? (Y/N) YES, NA INITIALS [place] 14:31, REVIEWED BY: PAUL. EXAMINATION GENERAL EXAMINATION: PATIENT IS ALERT O X 3 AND COOPERATIVE. TENDERNESS OVER THE LOW BACK AREA. RIGHT LEG IS WEAKER AT EXTENSION AND FLEXION. STRAIGHT LEG RAISE OF THE RIGHT LEG IS POSITIVE AT 45 DEGREES FOR RADICULOPATHY. MRI OF THE THORACIC SPINE DONE ON 07/08/2018 SHOWS A DISC PROTRUSION AT MULTIPLE LEVELS. MRI OF THE LUMBAR SPINE DONE ON 07/08/2018 SHOWS LAMINECTOMY CHANGES AND STENOSIS AT MULTIPLE LEVELS. ASSESSMENTS LUMBAR POST-LAMINECTOMY SYNDROME - M96.1 (PRIMARY) INTERVERTEBRAL DISC DISORDER WITH RADICULOPATHY OF LUMBAR REGION - M51.16 TREATMENT LUMBAR POST-LAMINECTOMY SYNDROME CLINICAL NOTES: WE DISCUSSED SEVERAL ISSUES WITH MRS. LI'S PAIN MANAGEMENT CASE. THE PATIENT IS INTERESTED IN MOVING FORWARD WITH A DCS TRIAL AT THIS TIME. WE DISCUSSED THE BENEFITS, RISKS, AND ALTERNATIVES OF THE TRIAL AND THE PATIENT WOULD LIKE TO PROCEED. I REVIEWED THE PSYCHOLOGICAL EVALUATION AND IT STATES THAT THERE IS NO GROSS PSYCHIATRIC DISORDER THAT WOULD INTERFERE WITH HER JUDGMENT AND ORIENTATION TO REALITY SO SHE IS FOUND TO BE PSYCHOLOGICALLY FIT TO PROVIDE INFORMED CONSENT. I WILL SPEAK WITH THE RADIOLOGIST TO REVIEW THE THORACIC AND LUMBAR MRIS TO BE SURE THERE IS ADEQUATE ROOM FOR THE CABLES TO PASS THROUGH. THE PATIENT WILL FOLLOW UP IN 1 MONTH. INSTRUCTIONS WERE GIVEN, QUESTIONS WERE ANSWERED, PATIENT REPORTS UNDERSTANDING AND AGREES WITH THE PLAN. I, KEVIN MOTA, DOCUMENTED THE ABOVE INFORMATION ACTING A SCRIBE FOR DR. ALLAN. I HAVE REVIEWED THE ABOVE DOCUMENT, WRITTEN BY KEVIN FULTON AND I VERIFY THAT IT IS ACCURATE. PROCEDURES PN WORKMANS' COMP OPINION IN YOUR OPINION, WAS THE INCIDENT THAT THE PATIENT DESCRIBED THE COMPETENT MEDICAL CAUSE OF THIS INJURY/ILLNESS? YES ARE THE PATIENT'S COMPLAINTS CONSISTENT WITH HIS/HER HISTORY OF THE INJURY/ILLNESS? YES IS THE PATIENT'S HISTORY OF THE INJURY/ILLNESS CONSISTENT WITH YOUR OBJECTIVE FINDING? YES WHAT IS THE PERCENTAGE OF TEMPORARY IMPAIRMENT? MODERATE TO MARKED = 66.7% IS THE PATIENT WORKING? NO DOCTOR ON SITE: JUNG JOY MD PROCEDURE CODES FA211 ESTABILISHED PATIENT [facility] FACILITY CHARGE G8427 CURRENT MEDS W/DOSAGES DOCUMENTED G8730 PAIN ASSESS POS TOOL F/U PLAN DOC DISPOSITION & COMMUNICATION FOLLOW UP 4 WEEKS ELECTRONICALLY SIGNED BY JUNG ALLAN MD, MD ON 08/16/2018 AT 06:13 PM EST DISCLAIMER : THIS IS A VISIT SUMMARY EXTRACTED FROM THE [employer] CHART. IT IS NOT A COPY OF THE [employer] PROGRESS NOTE. MTDD
== END ==
LOC: M PAIN 14:30
PROVIDERS: ATTEND Anesthesiology
DX: M96.1 Postlaminectomy syndrome, not elsewhere classified (principal); M51.16 Intervertebral disc disorders with radiculopathy, lumbar region; I73.00 Raynaud's syndrome without gangrene; L71.9 Rosacea, unspecified; Z79.899 Other long term (current) drug therapy; Z88.8 Allergy status to other drugs, medicaments and biological substances

== ENCOUNTER → 2018-08-26 | Outpatient (REF) | payer MEDICARE, MEDICAID ==
[2018-08-29 14:22] LABS: HPV HYBRID CAPTURE II Negative (Negative)
== END ==
LOC: M LAB REF 13:21
PROVIDERS: ATTEND Specialist
DX: Z12.4 Encounter for screening for malignant neoplasm of cervix (principal); Z11.51 Encounter for screening for human papillomavirus (HPV)
CPT/HCPCS: 87624; G0123

== ENCOUNTER → 2018-09-01 | Outpatient (CLI) | payer OTHER ==
--- NOTE | 2018-09-14 00:57 | ECWPNPC ---
PATIENT NAME: TRESSA LI : 1970 GENDER: FEMALE VISIT DATE: 09/01/2018 DISCHARGE DATE: 09/01/18 1101 VISIT LOCKED DATE TIME: PHYSICIAN: JUNG ALLAN MD RESOURCE: JUNG ALLAN MD REASON FOR APPOINTMENT 1. W/C DCS HISTORY OF PRESENT ILLNESS HISTORY OF PRESENT ILLNESS: PAIN THE PATIENT DESCRIBES THE PAIN... 47 YEAR OLD FEMALE PATIENT WITH A HISTORY OF CHRONIC LOW BACK PAIN. THE PATIENT DESCRIBES THE PAIN ACHING, BURNING, TENDER, SHARP, STABBING, AND CONTINUOUS WITH A PAIN SCORE OF 6-9/10 DEPENDING ON PHYSICAL ACTIVITY. THE PATIENT WAS HURT IN A WORK RELATED INJURY ON 10/12/2013 WHILE WORKING AT [employer] WHEN SHE WAS MOVING A BUCKET OF WATER AND INJURED HER BACK. THE PATIENT SAYS THAT HER PAIN IS IN HER LOW BACK AREA AND RADIATES DOWN HER RIGHT LEG. THE PATIENT SAYS THAT SHE HAS DIFFICULTY DOING DAILY ACTIVITIES SUCH COOKING, CLEANING, AND GROCERY SHOPPING DUE TO THIS PAIN. THE PATIENT STATES THAT SHE HAS MULTIPLE INTERVENTIONS, BUT HER PAIN HAS PERSISTED SO SHE IS INTERESTED IN A DCS TRIAL. PATIENT DENIES UNEXPLAINABLE WEIGHT LOSS, FEVER, CHILLS, NEW CHANGES ON HER URINARY OR BOWEL CONTROL. FALL RISK SCREENING: SCREENING : NO FALLS IN THE PAST YEAR. CURRENT MEDICATIONS TAKING METROGEL 1 % GEL 1 APPLICATION TO AFFECTED AREA EXTERNALLY NEEDED FOR ROSACEA TAKING LOESTRIN FE 07/20 TAB TAKE ONE TABLET BY MOUTH EVERY DAY TAKING ZOLPIDEM TARTRATE 10 MG TABLET 0.5 TABLET AT BEDTIME NEEDED ORALLY ONCE A DAY TAKING XANAX 0.25 MG TABLET 1 TABLET ORALLY THREE TIMES A DAY NEEDED TAKING ASIA-C 1000-50 MG TABLET 1 TAB(S) ORALLY ONCE A DAY TAKING FOLIC ACID 800 MG ORALLY DAILY TAKING VITAMIN D 1 TABLET 1 TABLET ORALLY ONCE A DAY TAKING BUPROPION HCL 75 MG TABLET 2 TABLET ORALLY BID TAKING MULTIVITAMINS TABLET 1 TABLET ORALLY ONCE A DAY TAKING ACETAMINOPHEN-500 MG 500 MG TABLETS 1-2 TABLETS ORALLY EVERY 6 HOURS NEEDED FOR PAIN TAKING STOOL SOFTENER 100 MG CAPSULE 1 ORALLY ONCE PER DAY PRN TAKING CYCLOBENZAPRINE HCL 10 MG TABLET 0.5 TABLET ORALLY THREE TIMES A DAY NEEDED TAKING CELEBREX 100 MG CAPSULE 1 ORALLY BID TAKING GABAPENTIN 300 MG CAPSULE 2 CAPSULE ORALLY TWICE DAILY TAKING TRAMADOL HCL 50 MG TABLET 1 TABLET NEEDED ORALLY Q8H MDD3 TAKING MELATONIN 10 MG TABLET DISINTEGRATING 1 CAPSULE AT BEDTIME NEEDED WITH FOOD ORALLY DAILY NOT-TAKING BACLOFEN 20 MG TABLET 1/2 TABLET ORALLY EVERY AM, NOTES: NOT AUTH NOT-TAKING HYDROXYZINE HCL 50 MG TABLET ORALLY EVERY OTHER NIGHT NOT-TAKING FLUOXTEINE 40 40MG TABLET 1 TAB(S) ORAL ONCE A DAY NOT-TAKING PERCOCET 7.5-325 MG TABLET 1/2 TABLET ORALLY ONCE A DAY NEEDED NOT-TAKING LOESTRIN FE 07/20 1-20 MG-MCG TABLET 1 TABLET ORALLY DAILY NOT-TAKING LIDODERM 5 % PATCH 1 PATCH RIGHT LOW BACK MUSCLE AREA EXTERNALLY ONCE A DAY NOT-TAKING MECLIZINE HCL 25 MG TABLET CHEWABLE 1 TABLET NEEDED ORALLY ONCE A DAY NOT-TAKING MOVANTIK 25 MG TABLET 1 TABLET IN THE MORNING ORALLY ONCE A DAY MEDICATION LIST REVIEWED AND RECONCILED WITH THE PATIENT PAST MEDICAL HISTORY HERNIATED DISC AND BONE SPUR BURSITIS L SHOULDER ROSACEA RAYNAUD'S FACET JOINT PROBLEM, ARTHRITIS. SEVERE CERVICAL DYSPLASIA, TREATED [facility] 08/2015 ALLERGIES CORTISONE: SWELLING: ALLERGY SURGICAL HISTORY ELBOW SURGERY-LEFT COLPOSCOPY WITH TRISHA 05/21/14 BACK SURGERY 07/07/14 COLPOSCOPY WITH TRISHA 06/20/15 SPINAL FUSION 10/2015 FAMILY HISTORY FATHER: ALIVE 74 YRS, HYPERTENSION, BORDERLINE DIABETES, DIAGNOSED WITH HYPERTENSION MOTHER: ALIVE 71 YRS, DIABETES, HYPERTENSION, ?ATRIAL FIBRILLATION. NO OSTEOPOROSIS, NO FX., DIAGNOSED WITH DIABETES, HYPERTENSION, HEART DISEASE, CANCER 2 BROTHER(S) , 2 SISTER(S) . 1DAUGHTER(S) - HEALTHY. ONE SISTER/ONE BROTHER WITH HYPERTENSION. DENIES FAMILY HX OF B/C/O CANCERS. SOCIAL HISTORY GENERAL: TOBACCO USE ARE YOU A:NONSMOKER VAPORNO E-CIGARETTENO ALCOHOL SCREENING HOW OFTEN DID YOU HAVE A DRINK CONTAINING ALCOHOL IN THE PAST YEAR? 2 TO 4 TIMES A MONTH (2 POINTS) , HOW MANY DRINKS DID YOU HAVE ON A TYPICAL DAY WHEN YOU WERE DRINKING IN THE PAST YEAR? 1 OR 2 DRINKS (0 POINTS) , HOW OFTEN DID YOU HAVE 6 OR MORE DRINKS ON ON OCCASION IN THE PAST YEAR? NEVER (0 POINTS) , DID YOU HAVE A DRINK CONTAINING ALCOHOL IN THE PAST YEAR? YES , POINTS 0 , INTERPRETATION NEGATIVE . RECREATIONAL DRUG USE DRUG USE? NO , PATIENT DENIES ABUSE OR MISSUSED OF ANY MEDICATION . , PATIENT DENIES USE OF ANY ILLEGAL SUBSTANCE INCLUDING MARIJUANA OR COCAINE . . NONDENOMINATIONAL [id number] [employer] LANGUAGE LANGUAGES SPOKEN:JAPANESE EDUCATION LEVEL OF EDUCATION:HIGH SCHOOL LEARNING BARRIERS / SPECIAL NEEDS ABILITY TO UNDERSTAND VERBAL INSTRUCTIONS GOOD :, ABILITY TO UNDERSTAND WRITTEN INSTRUCTIONS GOOD , KNOWLEDGE OF EDUCATIONAL NEEDS/TREATMENT PLAN GOOD , HINDU? NO , PLANS TO OVERCOME BARRIERS WRITTEN MATERIALS , LEARNING PREFERENCE NO PREFERENCE , ORIENTED TO PLAN OF CARE: PATIENT , PAIN MANAGEMENT PATIENT , TEACHING MATERIALS DEMONSTRATION/VERBAL INSTRUCTION , RESPONSE TO EDUCATION EXPLAINES ACCURATELY/VERBALIZES UNDERSTANDING , TEACHING MATERIALS DEMONSTRATION/VERBAL INSTRUCTION , RESPONSE TO EDUCATION EXPLAINS ACCURATELY/VERBALIZES UNDERSTANDING . OCCUPATION: DISABLED. DIET: REGULAR. EXERCISE: WALKS, AT LEAST 3X/WEEK. MARITAL STATUS: .. PAIN CLINIC PFS, CLERGY, PUBLIC HEALTH REFERRALS PFS REFERRAL NEEDED?NO CLERGY REFERRAL NEEDED?NO PUBLIC HEALTH REFERRAL NEEDED?NO WAS THE PROVIDER NOTIFIED OF ANY PERTINENT INFO?NO HAS THE PATIENT BEEN EDUCATED REGARDING HIS/HER PLAN OF CARE?YES HAS THE PATIENT BEEN EDUCATED REGARDING PAIN, THE RISK FOR PAIN, THE IMPORTANCE OF EFFECTIVE PAIN MANAGEMENT, AND THE PAIN ASSESSMENT PROCESS?YES ADVANCE DIRECTIVE ADVANCE DIRECTIVE DISCUSSED WITH PATIENT:YES HCP - DENIA LI (DAUGHTER) REVIEWED WITH PATIENT 08/04/18 1441 JSREVIEWED WITH PATIENT 08/04/18 1013 JS. HOSPITALIZATION/MAJOR DIAGNOSTIC PROCEDURE SURGERY RELATED REVIEW OF SYSTEMS REVIEWED BY: PROVIDER: JUNG ALLAN MD . CONSTITUTIONAL: ANY CHANGE IN YOUR MEDICAL CONDITION? NO . CHILLS NO . FEVER NO . INFECTION: DO YOU HAVE NEW INFECTIONS? NO . DO YOU HAVE HISTORY OF MRSA? NO . MUSCULOSKELETAL: ANY NEW PATTERNS OF PAIN OR NUMBNESS? NO . GASTROENTEROLOGY: ANY NEW CHANGE IN BOWEL CONTROL? NO . GENITOURINARY: ANY NEW CHANGE IN BLADDER CONTROL? NO . IS THERE A CHANCE YOU COULD BE ? NO . HEMATOLOGY/LYMPH: DO YOU TAKE ANY BLOOD THINNERS? (FOR EXAMPLE- COUMADIN, PLAVIX, AGGRENOX, PLATEL, PRADAXA, OR XARELTO) NO . WHEN WAS YOUR LAST DOSE? DATE: TIME: . NEUROLOGY: HAVE YOU FALLEN IN THE PAST 12 MONTHS? NO . ANY NEW EXTREMITY NUMBNESS OR WEAKNESS? NO . CARDIOLOGY: DO YOU HAVE A PACEMAKER OR DEFIBRILLATOR? NO . RESPIRATORY: HAVE YOU BEEN SICK IN THE PAST WEEK? NO . FEVER NO . FLU LIKE SYMPTOMS? NO . COUGH NO . INTEGUMENTARY: DO YOU HAVE ANY RASHES OR OPEN SORES? NO . ALLERGIC/IMMUNO: ARE YOU ALLERGIC TO IV DYE? NO . ANY NEW ALLERGIES? NO . PSYCHIATRIC: DO YOU HAVE THOUGHTS OF HURTING YOURSELF OR SOMEONE ELSE? NO . ARE YOU ABUSED, NEGLECTED, OR IN AN UNSAFE ENVIRONMENT? NO . ENDOCRINOLOGY: ARE YOU DIABETIC? NO . OTHER: DO YOU NEED ANY PRESCRIPTIONS? NO . IF YES, PLEASE LIST: ____ . ANY NEW PROBLEMS WITH YOUR MEDICATIONS? NO . WHEN DID YOU LAST EAT? ____ . WHEN DID YOU LAST DRINK? ____ . WHAT DID YOU LAST DRINK? ____ . NAME OF PERSON DRIVING YOU HOME? ____ . DO YOU HAVE ANY OTHER QUESTIONS OR CONCERNS NO . VITAL SIGNS WT 127.4 LBS, HT 61 IN, BMI 24.07 INDEX, BP 131/92 MM HG, HR 82 /MIN, RR 16 /MIN, TEMP 98.4 F, OXYGEN SAT % 98%, SAFE IN ENV? (Y/N) YES, NA INITIALS AW 1014, REVIEWED BY: PAUL. EXAMINATION GENERAL EXAMINATION: PATIENT IS ALERT O X 3 AND COOPERATIVE. ANTALGIC GAIT. PATIENT IS LIMPING FROM HER RIGHT LEG. RIGHT LEG IS WEAKER AT EXTENSION AND FLEXION. STRAIGHT LEG RAISE OF THE RIGHT LEG IS POSITIVE AT 45 DEGREES FOR RADICULOPATHY. MRI OF THE THORACIC SPINE DONE ON 07/08/2018 SHOWS ADEQUATE ROOM FOR THE CABLES TO PASS THROUGH. MRI OF THE LUMBAR SPINE DONE ON 07/08/2018 SHOWS POST LAMINECTOMY CHANGES AND ADEQUATE ROOM FOR THE CABLES TO PASS THROUGH. ASSESSMENTS LUMBAR POST-LAMINECTOMY SYNDROME - M96.1 (PRIMARY) TREATMENT LUMBAR POST-LAMINECTOMY SYNDROME CLINICAL NOTES: WE DISCUSSED SEVERAL ISSUES WITH MRS. LI'S PAIN MANAGEMENT CASE. THE PATIENT IS INTERESTED IN A DCS TRIAL. WE DISCUSSED THE BENEFITS, RISKS, AND ALTERNATIVES OF THE TRIAL AND THE PATIENT WOULD LIKE TO PROCEED. I DISCUSSED THE CASE WITH THE RADIOLOGIST, PAGE MENDEZ, AND AFTER REVIEWING THE PATIENT'S THORACIC AND LUMBAR MRI'S, HE STATED THAT THERE IS ADEQUATE ROOM FOR THE CABLES TO PASS THROUGH. I REVIEWED THE PSYCHOLOGICAL EVALUATION AND IT STATES THAT THE PATIENT WAS FOUND TO BE PSYCHOLOGICALLY FIT TO PROVIDE INFORMED CONSENT FOR PLACEMENT OF A SPINAL CORD STIMULATOR. THE PATIENT WILL NEED A CLEARANCE FROM HER PRIMARY CARE PHYSICIAN BEFORE PROCEEDING WITH THE TRIAL. THE PATIENT WILL FOLLOW UP IN 1 MONTH. I WAS WITH THE PATIENT FOR OVER 25 MINUTES AND MORE THAN HALF OF THE TIME WAS SPENT DISCUSSING THE DCS TRIAL AND DISCUSSING THE CASE WITH THE RADIOLOGIST. INSTRUCTIONS WERE GIVEN, QUESTIONS WERE ANSWERED, PATIENT REPORTS UNDERSTANDING AND AGREES WITH THE PLAN. I, KEVIN MOTA, DOCUMENTED THE ABOVE INFORMATION ACTING A SCRIBE FOR DR. ALLAN. I HAVE REVIEWED THE ABOVE DOCUMENT, WRITTEN BY KEVIN FULTON AND I VERIFY THAT IT IS ACCURATE. PROCEDURES PN WORKMANS' COMP OPINION IN YOUR OPINION, WAS THE INCIDENT THAT THE PATIENT DESCRIBED THE COMPETENT MEDICAL CAUSE OF THIS INJURY/ILLNESS? YES ARE THE PATIENT'S COMPLAINTS CONSISTENT WITH HIS/HER HISTORY OF THE INJURY/ILLNESS? YES IS THE PATIENT'S HISTORY OF THE INJURY/ILLNESS CONSISTENT WITH YOUR OBJECTIVE FINDING? YES WHAT IS THE PERCENTAGE OF TEMPORARY IMPAIRMENT? MODERATE TO MARKED = 66.7% IS THE PATIENT WORKING? NO DOCTOR ON SITE: JUNG JOY MD PROCEDURE CODES FA211 ESTABILISHED PATIENT [facility] FACILITY CHARGE G8427 CURRENT MEDS W/DOSAGES DOCUMENTED G8730 PAIN ASSESS POS TOOL F/U PLAN DOC DISPOSITION & COMMUNICATION FOLLOW UP 4 WEEKS (REASON: W/C LOW BACK- DCS) ELECTRONICALLY SIGNED BY JUNG ALLAN MD, MD ON 09/13/2018 AT 07:02 PM EDT DISCLAIMER : THIS IS A VISIT SUMMARY EXTRACTED FROM THE [employer] CHART. IT IS NOT A COPY OF THE [employer] PROGRESS NOTE. ROXIE
== END ==
LOC: M PAIN 10:15
PROVIDERS: ATTEND Anesthesiology
DX: M96.1 Postlaminectomy syndrome, not elsewhere classified (principal); G25.81 Restless legs syndrome; Z79.899 Other long term (current) drug therapy; Z88.8 Allergy status to other drugs, medicaments and biological substances

== ENCOUNTER → 2018-09-11 | Outpatient (CLI) | payer MEDICARE, MEDICAID ==
--- NOTE | 2018-09-11 09:18 | REPMRS ---
Patient History The patient states she had a clinical breast exam in 08/2018. No known family history of cancer. Taking hormonal contraceptives for 15 years. Digital Woman Screen Mammo: September 11, 2018 - Exam #: [id number] Bilateral CC and MLO view(s) were taken. Technologist: Jennifer Sevilla, Technologist Prior study comparison: September 05, 2017, digital woman screen mammo performed at [facility]. September 03, 2016, digital woman screen mammo performed at [facility]. FINDINGS: There are scattered fibroglandular densities. There has been no change in the appearance of the mammogram from the prior studies. There is a mild amount of residual fibroglandular tissue which is fairly symmetric. There is no interval development of dominant mass, architectural distortion, or clustered microcalcification suggestive of malignancy. 3-D tomosynthesis shows no additional findings. No significant changes when compared with prior studies. Assessment: BI-RADS/ACR category 1 mammogram. Negative Mammogram. Recommendation Routine screening mammogram in 1 year (for women over age 40). This mammogram was interpreted with the aid of an FDA-approved computer-aided dectection system. A. Negative x-ray reports should not delay biopsy if a dominant or clinically suspicious mass is present. B. Four to eight percent of cancers are not identified by mammography. C. Adenosis and dense breast may obscure an underlying neoplasm. Electronically Signed By: Estevan Burnette MD 09/11/18 0989
== END ==
LOC: M WHC 07:16
PROVIDERS: ATTEND Specialist
DX: Z12.31 Encounter for screening mammogram for malignant neoplasm of breast (principal)

== ENCOUNTER → 2018-09-30 | Outpatient (CLI) | payer OTHER ==
[~2018-09-30] MED LIST changes: +MECL1CHW PO; -MECL1CHW2 PO
--- NOTE | 2018-10-12 23:49 | ECWPNPC ---
PATIENT NAME: TRESSA LI : 1970 GENDER: FEMALE VISIT DATE: 09/30/2018 DISCHARGE DATE: 09/30/18 1015 VISIT LOCKED DATE TIME: PHYSICIAN: JUNG ALLAN MD RESOURCE: JUNG ALLAN MD REASON FOR APPOINTMENT 1. W/C DCS HISTORY OF PRESENT ILLNESS HISTORY OF PRESENT ILLNESS: PAIN THE PATIENT DESCRIBES THE PAIN... 47 YEAR OLD FEMALE PATIENT WITH A HISTORY OF CHRONIC LOW BACK PAIN. THE PATIENT DESCRIBES THE PAIN ACHING, SORE, SHARP, SHOOTING, AND CONTINUOUS WITH A PAIN SCORE OF 6-9/10 DEPENDING ON PHYSICAL ACTIVITY. 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 THE PATIENT SAYS HER PAIN IS IN HER LOW BACK AND RADIATES DOWN HER RIGHT LEG. THE PATIENT HAS HAD 2 BACK SURGERIES, BUT SAYS THAT HER PAIN HAS PERSISTED. THE PATIENT HAS TRIED INTERVENTIONS, BUT HAS HAD REACTIONS TO THE STEROIDS. THE PATIENT IS CURRENTLY USING CYCLOBENZAPRINE FOR SPASMS NEEDED, BUT SAYS THAT SHE NEEDS MORE FOR HER PAIN RELIEF SO SHE IS INTERESTED IN A DCS TRIAL. PATIENT DENIES UNEXPLAINABLE WEIGHT LOSS, FEVER, CHILLS, NEW CHANGES ON HER URINARY OR BOWEL CONTROL. FALL RISK SCREENING: SCREENING :NO FALLS REPORTED IN THE LAST YEAR CURRENT MEDICATIONS TAKING METROGEL 1 % GEL 1 APPLICATION TO AFFECTED AREA EXTERNALLY NEEDED FOR ROSACEA TAKING LOESTRIN FE 07/20 TAB TAKE ONE TABLET BY MOUTH EVERY DAY TAKING ZOLPIDEM TARTRATE 10 MG TABLET 0.5 TABLET AT BEDTIME NEEDED ORALLY ONCE A DAY TAKING XANAX 0.25 MG TABLET 1 TABLET ORALLY THREE TIMES A DAY NEEDED TAKING ASIA-C 1000-50 MG TABLET 1 TAB(S) ORALLY ONCE A DAY TAKING FOLIC ACID 800 MG ORALLY DAILY TAKING VITAMIN D 1 TABLET 1 TABLET ORALLY ONCE A DAY TAKING BUPROPION HCL 75 MG TABLET 2 TABLET ORALLY BID TAKING MULTIVITAMINS TABLET 1 TABLET ORALLY ONCE A DAY TAKING ACETAMINOPHEN-500 MG 500 MG TABLETS 1-2 TABLETS ORALLY EVERY 6 HOURS NEEDED FOR PAIN TAKING STOOL SOFTENER 100 MG CAPSULE 1 ORALLY ONCE PER DAY PRN TAKING CYCLOBENZAPRINE HCL 10 MG TABLET 0.5 TABLET ORALLY THREE TIMES A DAY NEEDED TAKING CELEBREX 100 MG CAPSULE 1 ORALLY BID TAKING GABAPENTIN 300 MG CAPSULE 2 CAPSULE ORALLY TWICE DAILY TAKING TRAMADOL HCL 50 MG TABLET 1 TABLET NEEDED ORALLY Q8H MDD3 TAKING MELATONIN 10 MG TABLET DISINTEGRATING 1 CAPSULE AT BEDTIME NEEDED WITH FOOD ORALLY DAILY NOT-TAKING BACLOFEN 20 MG TABLET 1/2 TABLET ORALLY EVERY AM, NOTES: NOT AUTH NOT-TAKING HYDROXYZINE HCL 50 MG TABLET ORALLY EVERY OTHER NIGHT NOT-TAKING FLUOXTEINE 40 40MG TABLET 1 TAB(S) ORAL ONCE A DAY NOT-TAKING PERCOCET 7.5-325 MG TABLET 1/2 TABLET ORALLY ONCE A DAY NEEDED NOT-TAKING LOESTRIN FE 07/20 1-20 MG-MCG TABLET 1 TABLET ORALLY DAILY NOT-TAKING LIDODERM 5 % PATCH 1 PATCH RIGHT LOW BACK MUSCLE AREA EXTERNALLY ONCE A DAY NOT-TAKING MECLIZINE HCL 25 MG TABLET CHEWABLE 1 TABLET NEEDED ORALLY ONCE A DAY NOT-TAKING MOVANTIK 25 MG TABLET 1 TABLET IN THE MORNING ORALLY ONCE A DAY MEDICATION LIST REVIEWED AND RECONCILED WITH THE PATIENT PAST MEDICAL HISTORY HERNIATED DISC AND BONE SPUR BURSITIS L SHOULDER ROSACEA RAYNAUD'S FACET JOINT PROBLEM, ARTHRITIS. SEVERE CERVICAL DYSPLASIA, TREATED [facility] LEEP 08/2015 ALLERGIES CORTISONE: SWELLING - ALLERGY SURGICAL HISTORY ELBOW SURGERY-LEFT COLPOSCOPY WITH TRISHA 05/21/14 BACK SURGERY 07/07/14 COLPOSCOPY WITH TRISHA 06/20/15 SPINAL FUSION 10/2015 FAMILY HISTORY FATHER: ALIVE 74 YRS, HYPERTENSION, BORDERLINE DIABETES, DIAGNOSED WITH HYPERTENSION MOTHER: ALIVE 71 YRS, DIABETES, HYPERTENSION, ?ATRIAL FIBRILLATION. NO OSTEOPOROSIS, NO FX., HEART DISEASE, CANCER, DIABETES, HYPERTENSION 2 BROTHER(S) , 2 SISTER(S) . 1DAUGHTER(S) - HEALTHY. ONE SISTER\/ONE BROTHER WITH HYPERTENSION. DENIES FAMILY HX OF B\/C\/O CANCERS. SOCIAL HISTORY GENERAL: TOBACCO USE ARE YOU A:NONSMOKER VAPORNO E-CIGARETTENO LATEX QUESTIONNAIRE LATEX ALLERGY : HAVE YOU EVER DEVELOPED ANY TYPE OF REACTION AFTER HANDLING LATEX PRODUCTS SUCH RUBBER GLOVES, CONDOMS, DIAPHRAGMS, BALLOONS, SOCKS, OR UNDERWEAR?NO LATEX ALLERGY : HAVE YOU EVER DEVELOPED ANY TYPE OF REACTION DURING OR AFTER DENTAL APPOINTMENT, VAGINAL/RECTAL EXAMINATION, SURGICAL PROCEDURE, OR ANY OTHER EXPOSURE?NO LATEX RISK : HAVE YOU EVER HAD ANY DIFFICULTY BREATHING OR HIVES AFTER EATING OR HANDLING ANY FRUITS, OR VEGETABLES; SUCH KIWI, BANANAS, STONE FRUITS, OR CHESTNUTSNO LATEX RISK : DO YOU HAVE A PREVIOUS PERSONAL HISTORY OF MORE THAN NINE SURGERIES, SPINA BIFIDA, OR REPEATED CATHERTIZATIONS? NO LATEX RISK : ARE YOU FREQUENTLY EXPOSED TO LATEX PRODUCTS IN YOUR OCCUPATION?NO DATE ASKED : 09/30/2018 ALCOHOL SCREENING HOW OFTEN DID YOU HAVE A DRINK CONTAINING ALCOHOL IN THE PAST YEAR? 2 TO 4 TIMES A MONTH (2 POINTS) , HOW MANY DRINKS DID YOU HAVE ON A TYPICAL DAY WHEN YOU WERE DRINKING IN THE PAST YEAR? 1 OR 2 DRINKS (0 POINTS) , HOW OFTEN DID YOU HAVE 6 OR MORE DRINKS ON ON OCCASION IN THE PAST YEAR? NEVER (0 POINTS) , DID YOU HAVE A DRINK CONTAINING ALCOHOL IN THE PAST YEAR? YES , POINTS 0 , INTERPRETATION NEGATIVE . RECREATIONAL DRUG USE DRUG USE? NO , PATIENT DENIES ABUSE OR MISSUSED OF ANY MEDICATION . , PATIENT DENIES USE OF ANY ILLEGAL SUBSTANCE INCLUDING MARIJUANA OR COCAINE . . GNOSTICISM [id number] RELIGION LANGUAGE LANGUAGES SPOKEN:VIETNAMESE EDUCATION LEVEL OF EDUCATION:HIGH SCHOOL LEARNING BARRIERS / SPECIAL NEEDS ABILITY TO UNDERSTAND VERBAL INSTRUCTIONS GOOD :, ABILITY TO UNDERSTAND WRITTEN INSTRUCTIONS GOOD , KNOWLEDGE OF EDUCATIONAL NEEDS/TREATMENT PLAN GOOD , SHINTO? NO , PLANS TO OVERCOME BARRIERS WRITTEN MATERIALS , LEARNING PREFERENCE NO PREFERENCE , ORIENTED TO PLAN OF CARE: PATIENT , PAIN MANAGEMENT PATIENT , TEACHING MATERIALS DEMONSTRATION/VERBAL INSTRUCTION , RESPONSE TO EDUCATION EXPLAINES ACCURATELY/VERBALIZES UNDERSTANDING , TEACHING MATERIALS DEMONSTRATION/VERBAL INSTRUCTION , RESPONSE TO EDUCATION EXPLAINS ACCURATELY/VERBALIZES UNDERSTANDING . OCCUPATION: DISABLED. DIET: REGULAR. EXERCISE: WALKS, AT LEAST 3X/WEEK. MARITAL STATUS: .. PAIN CLINIC PFS, CLERGY, PUBLIC HEALTH REFERRALS PFS REFERRAL NEEDED?NO CLERGY REFERRAL NEEDED?NO PUBLIC HEALTH REFERRAL NEEDED?NO WAS THE PROVIDER NOTIFIED OF ANY PERTINENT INFO?NO HAS THE PATIENT BEEN EDUCATED REGARDING HIS/HER PLAN OF CARE?YES HAS THE PATIENT BEEN EDUCATED REGARDING PAIN, THE RISK FOR PAIN, THE IMPORTANCE OF EFFECTIVE PAIN MANAGEMENT, AND THE PAIN ASSESSMENT PROCESS?YES ADVANCE DIRECTIVE ADVANCE DIRECTIVE DISCUSSED WITH PATIENT:YES HCP - DENIA LI (DAUGHTER) REVIEWED WITH PATIENT 08/04/18 1441 JSREVIEWED WITH PATIENT 08/04/18 1013 JSREVIEWED WITH PATIENT 09/30/18 0900 JS. HOSPITALIZATION/MAJOR DIAGNOSTIC PROCEDURE SURGERY RELATED REVIEW OF SYSTEMS REVIEWED BY: PROVIDER: JUNG ALLAN MD . CONSTITUTIONAL: ANY CHANGE IN YOUR MEDICAL CONDITION? NO . CHILLS NO . FEVER NO . INFECTION: DO YOU HAVE NEW INFECTIONS? NO . DO YOU HAVE HISTORY OF MRSA? NO . MUSCULOSKELETAL: ANY NEW PATTERNS OF PAIN OR NUMBNESS? NO . GASTROENTEROLOGY: ANY NEW CHANGE IN BOWEL CONTROL? NO . GENITOURINARY: ANY NEW CHANGE IN BLADDER CONTROL? NO . IS THERE A CHANCE YOU COULD BE ? NO . HEMATOLOGY/LYMPH: DO YOU TAKE ANY BLOOD THINNERS? (FOR EXAMPLE- COUMADIN, PLAVIX, AGGRENOX, PLATEL, PRADAXA, OR XARELTO) NO . WHEN WAS YOUR LAST DOSE? DATE: TIME: . NEUROLOGY: HAVE YOU FALLEN IN THE PAST 12 MONTHS? NO . ANY NEW EXTREMITY NUMBNESS OR WEAKNESS? NO . CARDIOLOGY: DO YOU HAVE A PACEMAKER OR DEFIBRILLATOR? NO . RESPIRATORY: HAVE YOU BEEN SICK IN THE PAST WEEK? NO . FEVER NO . FLU LIKE SYMPTOMS? NO . COUGH NO . INTEGUMENTARY: DO YOU HAVE ANY RASHES OR OPEN SORES? NO . ALLERGIC/IMMUNO: ARE YOU ALLERGIC TO IV DYE? NO . ANY NEW ALLERGIES? NO . PSYCHIATRIC: DO YOU HAVE THOUGHTS OF HURTING YOURSELF OR SOMEONE ELSE? NO . ARE YOU ABUSED, NEGLECTED, OR IN AN UNSAFE ENVIRONMENT? NO . ENDOCRINOLOGY: ARE YOU DIABETIC? NO . OTHER: DO YOU NEED ANY PRESCRIPTIONS? NO . IF YES, PLEASE LIST: ____ . ANY NEW PROBLEMS WITH YOUR MEDICATIONS? NO . WHEN DID YOU LAST EAT? ____ . WHEN DID YOU LAST DRINK? ____ . WHAT DID YOU LAST DRINK? ____ . NAME OF PERSON DRIVING YOU HOME? ____ . DO YOU HAVE ANY OTHER QUESTIONS OR CONCERNS YES, PATIENT STATES SHE STRAINED HER BACK ABOUT 2 WEEKS AGO AND WAS HAVING INCREASED MUSCLE PAIN AND TIGHTNESS. SHE WAS TAKING A WHOLE CYCLOBENZAPRINE INSTEAD OF 1/2. THIS HELPED A LOT AND SHE IS BACK TO TAKING 1/2 TABLETS AGAIN. PATIENT WAS WONDERING IF HER DOSE COULD BE INCREASED TO 1 TABLET GOING FORWARD IF NEEDED . VITAL SIGNS WT 129.2 LBS, HT 61 IN, BMI 24.41 INDEX, BP 127/82 MM HG, HR 76 /MIN, RR 16 /MIN, TEMP 99.4 F, OXYGEN SAT % 100%, SAFE IN ENV? (Y/N) YES, REVIEWED BY: PAUL. EXAMINATION GENERAL EXAMINATION: PATIENT IS ALERT O X 3 AND COOPERATIVE. RIGHT LEG IS WEAKER AT EXTENSION AND FLEXION. MRI OF THE THORACIC SPINE DONE ON 07/08/2018 SHOWS ADEQUATE ROOM FOR THE CABLES TO PASS THROUGH. MRI OF THE LUMBAR SPINE DONE ON 07/08/2018 SHOWS ADEQUATE ROOM FOR THE CABLES TO PASS THROUGH. ASSESSMENTS LUMBAR POST-LAMINECTOMY SYNDROME - M96.1 (PRIMARY) TREATMENT LUMBAR POST-LAMINECTOMY SYNDROME CLINICAL NOTES: WE DISCUSSED SEVERAL ISSUES WITH MRS. LI'S PAIN MANAGEMENT CASE. WE ARE WAITING FOR THE APPROVAL OF THE DCS TRIAL TO POSSIBLY MOVE FORWARD WITH IT ON October. THE PATIENT WILL FOLLOW UP IN 1 MONTH. INSTRUCTIONS WERE GIVEN, QUESTIONS WERE ANSWERED, PATIENT REPORTS UNDERSTANDING AND AGREES WITH THE PLAN. I, KEVIN MOTA, DOCUMENTED THE ABOVE INFORMATION ACTING A SCRIBE FOR DR. ALLAN. I HAVE REVIEWED THE ABOVE DOCUMENT, WRITTEN BY KEVIN VAZQUEZIBKenny AND I VERIFY THAT IT IS ACCURATE. . PROCEDURES PN WORKMANS' COMP OPINION IN YOUR OPINION, WAS THE INCIDENT THAT THE PATIENT DESCRIBED THE COMPETENT MEDICAL CAUSE OF THIS INJURY/ILLNESS? YES ARE THE PATIENT'S COMPLAINTS CONSISTENT WITH HIS/HER HISTORY OF THE INJURY/ILLNESS? YES IS THE PATIENT'S HISTORY OF THE INJURY/ILLNESS CONSISTENT WITH YOUR OBJECTIVE FINDING? YES WHAT IS THE PERCENTAGE OF TEMPORARY IMPAIRMENT? MODERATE TO MARKED = 66.7% IS THE PATIENT WORKING? NO DOCTOR ON SITE: JUNG JOY MD PROCEDURE CODES FA211 ESTABILISHED PATIENT [facility] FACILITY CHARGE G8427 CURRENT MEDS W/DOSAGES DOCUMENTED G8730 PAIN ASSESS POS TOOL F/U PLAN DOC DISPOSITION & COMMUNICATION FOLLOW UP 4 WEEKS ELECTRONICALLY SIGNED BY JUNG ALLAN MD, MD ON 10/12/2018 AT 08:46 PM EDT DISCLAIMER : THIS IS A VISIT SUMMARY EXTRACTED FROM THE [employer] CHART. IT IS NOT A COPY OF THE [employer] PROGRESS NOTE. ROXIE
== END ==
LOC: M PAIN 08:45
PROVIDERS: ATTEND Anesthesiology
DX: M96.1 Postlaminectomy syndrome, not elsewhere classified (principal); I73.00 Raynaud's syndrome without gangrene; Z79.899 Other long term (current) drug therapy; Z88.8 Allergy status to other drugs, medicaments and biological substances

== ENCOUNTER → 2018-10-27 | Outpatient (CLI) | payer OTHER ==
[~2018-10-27] MED LIST changes: +BUPR75TA5 PO; +GABA600T4 PO; +LOES1TAB7 PO; +METR1GEL4 EX
--- NOTE | 2018-11-12 01:01 | ECWPNPC ---
PATIENT NAME: TRESSA LI : 1970 GENDER: FEMALE VISIT DATE: 10/27/2018 DISCHARGE DATE: 10/27/18 1214 VISIT LOCKED DATE TIME: PHYSICIAN: JUNG ALLAN MD RESOURCE: JUNG ALLAN MD REASON FOR APPOINTMENT 1. W/C LBP/LEG PAIN HISTORY OF PRESENT ILLNESS HISTORY OF PRESENT ILLNESS: PAIN THE PATIENT DESCRIBES THE PAIN... 48 YEAR OLD FEMALE PATIENT WITH A HISTORY OF CHRONIC LOW BACK AND LEG PAIN. THE PATIENT DESCRIBES THE PATIENT ACHING, BURNING, STABBING, SHARP, SORE, AND CONTINUOUS WITH A PAIN SCORE OF 7-8/10 DEPENDING ON PHYSICAL ACTIVITY. 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 THE PATIENT SAYS THE PAIN ORIGINATES IN HER LOWER BACK AND RADIATES DOWN HER RIGHT LEG. THE PATIENT SAYS SHE HAS TRIED NUMEROUS INTERVENTIONS IN THE PAST BUT THE PAIN STILL PERSISTS. THE PATIENT SAYS SHE IS READY TO MOVE FORWARD WITH THE DCS TRIAL AND IS JUST WAITING FOR CLEARANCE FROM HER PRIMARY CARE PROVIDER. PATIENT DENIES UNEXPLAINABLE WEIGHT LOSS, FEVER, CHILLS, NEW CHANGES ON HER URINARY OR BOWEL CONTROL. FALL RISK SCREENING: SCREENING :NO FALLS REPORTED IN THE LAST YEAR CURRENT MEDICATIONS TAKING METROGEL 1 % GEL 1 APPLICATION TO AFFECTED AREA EXTERNALLY NEEDED FOR ROSACEA TAKING LOESTRIN FE 07/20 TAB TAKE ONE TABLET BY MOUTH EVERY DAY TAKING ZOLPIDEM TARTRATE 10 MG TABLET 0.5 TABLET AT BEDTIME NEEDED ORALLY ONCE A DAY TAKING XANAX 0.25 MG TABLET 1 TABLET ORALLY THREE TIMES A DAY NEEDED TAKING ASIA-C 1000-50 MG TABLET 1 TAB(S) ORALLY ONCE A DAY TAKING FOLIC ACID 800 MG ORALLY DAILY TAKING VITAMIN D 1 TABLET 1 TABLET ORALLY ONCE A DAY TAKING BUPROPION HCL 75 MG TABLET 2 TABLET ORALLY BID TAKING MULTIVITAMINS TABLET 1 TABLET ORALLY ONCE A DAY TAKING ACETAMINOPHEN-500 MG 500 MG TABLETS 1-2 TABLETS ORALLY EVERY 6 HOURS NEEDED FOR PAIN TAKING STOOL SOFTENER 100 MG CAPSULE 1 ORALLY ONCE PER DAY PRN TAKING CYCLOBENZAPRINE HCL 10 MG TABLET 0.5 TABLET ORALLY THREE TIMES A DAY NEEDED TAKING CELEBREX 100 MG CAPSULE 1 ORALLY BID TAKING GABAPENTIN 300 MG CAPSULE 2 CAPSULE ORALLY TWICE DAILY TAKING TRAMADOL HCL 50 MG TABLET 1 TABLET NEEDED ORALLY Q8H MDD3 TAKING MELATONIN 10 MG TABLET DISINTEGRATING 1 CAPSULE AT BEDTIME NEEDED WITH FOOD ORALLY DAILY TAKING FLUOXTEINE 40 40MG TABLET 1 TAB(S) ORAL ONCE A DAY NOT-TAKING HYDROXYZINE HCL 50 MG TABLET ORALLY EVERY OTHER NIGHT NOT-TAKING PERCOCET 7.5-325 MG TABLET 1/2 TABLET ORALLY ONCE A DAY NEEDED DISCONTINUED BACLOFEN 20 MG TABLET 1/2 TABLET ORALLY EVERY AM, NOTES: NOT AUTH DISCONTINUED LOESTRIN FE 07/20 1-20 MG-MCG TABLET 1 TABLET ORALLY DAILY DISCONTINUED LIDODERM 5 % PATCH 1 PATCH RIGHT LOW BACK MUSCLE AREA EXTERNALLY ONCE A DAY DISCONTINUED MECLIZINE HCL 25 MG TABLET CHEWABLE 1 TABLET NEEDED ORALLY ONCE A DAY DISCONTINUED MOVANTIK 25 MG TABLET 1 TABLET IN THE MORNING ORALLY ONCE A DAY MEDICATION LIST REVIEWED AND RECONCILED WITH THE PATIENT PAST MEDICAL HISTORY HERNIATED DISC AND BONE SPUR BURSITIS L SHOULDER ROSACEA RAYNAUD'S FACET JOINT PROBLEM, ARTHRITIS. SEVERE CERVICAL DYSPLASIA, TREATED [facility] LEEP 08/2015 ALLERGIES CORTISONE: SWELLING - ALLERGY SURGICAL HISTORY ELBOW SURGERY-LEFT COLPOSCOPY WITH TRISHA 05/21/14 BACK SURGERY 07/07/14 COLPOSCOPY WITH TRISHA 06/20/15 SPINAL FUSION 10/2015 FAMILY HISTORY FATHER: ALIVE 74 YRS, HYPERTENSION, BORDERLINE DIABETES, DIAGNOSED WITH HYPERTENSION MOTHER: ALIVE 71 YRS, DIABETES, HYPERTENSION, ?ATRIAL FIBRILLATION. NO OSTEOPOROSIS, NO FX., CANCER, DIABETES, HYPERTENSION, HEART DISEASE 2 BROTHER(S) , 2 SISTER(S) . 1DAUGHTER(S) - HEALTHY. ONE SISTER\\\/ONE BROTHER WITH HYPERTENSION. DENIES FAMILY HX OF B\\\/C\\\/O CANCERS. SOCIAL HISTORY GENERAL: TOBACCO USE ARE YOU A:NONSMOKER VAPORNO E-CIGARETTENO EDUCATION LEVEL OF EDUCATION:HIGH SCHOOL DIET: REGULAR. LANGUAGE LANGUAGES SPOKEN:SLOVENIAN RECREATIONAL DRUG USE DRUG USE? NO , PATIENT DENIES ABUSE OR MISSUSED OF ANY MEDICATION . , PATIENT DENIES USE OF ANY ILLEGAL SUBSTANCE INCLUDING MARIJUANA OR COCAINE .. EXERCISE: WALKS, AT LEAST 3X/WEEK. LEARNING BARRIERS / SPECIAL NEEDS ABILITY TO UNDERSTAND VERBAL INSTRUCTIONS GOOD :, ABILITY TO UNDERSTAND WRITTEN INSTRUCTIONS GOOD , KNOWLEDGE OF EDUCATIONAL NEEDS/TREATMENT PLAN GOOD , MUSLIM? NO , PLANS TO OVERCOME BARRIERS WRITTEN MATERIALS , LEARNING PREFERENCE NO PREFERENCE , ORIENTED TO PLAN OF CARE: PATIENT , PAIN MANAGEMENT PATIENT , TEACHING MATERIALS DEMONSTRATION/VERBAL INSTRUCTION , RESPONSE TO EDUCATION EXPLAINES ACCURATELY/VERBALIZES UNDERSTANDING , TEACHING MATERIALS DEMONSTRATION/VERBAL INSTRUCTION , RESPONSE TO EDUCATION EXPLAINS ACCURATELY/VERBALIZES UNDERSTANDING. PAIN CLINIC PFS, CLERGY, PUBLIC HEALTH REFERRALS PFS REFERRAL NEEDED?NO CLERGY REFERRAL NEEDED?NO PUBLIC HEALTH REFERRAL NEEDED?NO WAS THE PROVIDER NOTIFIED OF ANY PERTINENT INFO?NO HAS THE PATIENT BEEN EDUCATED REGARDING HIS/HER PLAN OF CARE?YES HAS THE PATIENT BEEN EDUCATED REGARDING PAIN, THE RISK FOR PAIN, THE IMPORTANCE OF EFFECTIVE PAIN MANAGEMENT, AND THE PAIN ASSESSMENT PROCESS?YES LATEX QUESTIONNAIRE LATEX ALLERGY : HAVE YOU EVER DEVELOPED ANY TYPE OF REACTION AFTER HANDLING LATEX PRODUCTS SUCH RUBBER GLOVES, CONDOMS, DIAPHRAGMS, BALLOONS, SOCKS, OR UNDERWEAR?NO LATEX ALLERGY : HAVE YOU EVER DEVELOPED ANY TYPE OF REACTION DURING OR AFTER DENTAL APPOINTMENT, VAGINAL/RECTAL EXAMINATION, SURGICAL PROCEDURE, OR ANY OTHER EXPOSURE?NO LATEX RISK : HAVE YOU EVER HAD ANY DIFFICULTY BREATHING OR HIVES AFTER EATING OR HANDLING ANY FRUITS, OR VEGETABLES; SUCH KIWI, BANANAS, STONE FRUITS, OR CHESTNUTSNO LATEX RISK : DO YOU HAVE A PREVIOUS PERSONAL HISTORY OF MORE THAN NINE SURGERIES, SPINA BIFIDA, OR REPEATED CATHERTIZATIONS? NO LATEX RISK : ARE YOU FREQUENTLY EXPOSED TO LATEX PRODUCTS IN YOUR OCCUPATION?NO DATE ASKED : 09/30/2018 ADVANCE DIRECTIVE ADVANCE DIRECTIVE DISCUSSED WITH PATIENT:YES HCP - DENIA LI (DAUGHTER) [employer] [id number] YAZIDI MARITAL STATUS: .. ALCOHOL SCREENING HOW OFTEN DID YOU HAVE A DRINK CONTAINING ALCOHOL IN THE PAST YEAR? 2 TO 4 TIMES A MONTH (2 POINTS) , HOW MANY DRINKS DID YOU HAVE ON A TYPICAL DAY WHEN YOU WERE DRINKING IN THE PAST YEAR? 1 OR 2 DRINKS (0 POINTS) , HOW OFTEN DID YOU HAVE 6 OR MORE DRINKS ON ON OCCASION IN THE PAST YEAR? NEVER (0 POINTS) , DID YOU HAVE A DRINK CONTAINING ALCOHOL IN THE PAST YEAR? YES , POINTS 0 , INTERPRETATION NEGATIVE. OCCUPATION: DISABLED. REVIEWED WITH PATIENT 08/04/18 1441 JSREVIEWED WITH PATIENT 08/04/18 1013 JSREVIEWED WITH PATIENT 09/30/18 0900 JS. HOSPITALIZATION/MAJOR DIAGNOSTIC PROCEDURE SURGERY RELATED REVIEW OF SYSTEMS REVIEWED BY: PROVIDER: JUNG ALLAN MD . CONSTITUTIONAL: ANY CHANGE IN YOUR MEDICAL CONDITION? NO . CHILLS NO . FEVER NO . INFECTION: DO YOU HAVE NEW INFECTIONS? NO . DO YOU HAVE HISTORY OF MRSA? NO . MUSCULOSKELETAL: ANY NEW PATTERNS OF PAIN OR NUMBNESS? NO . GASTROENTEROLOGY: ANY NEW CHANGE IN BOWEL CONTROL? NO . GENITOURINARY: ANY NEW CHANGE IN BLADDER CONTROL? NO . IS THERE A CHANCE YOU COULD BE ? NO . HEMATOLOGY/LYMPH: DO YOU TAKE ANY BLOOD THINNERS? (FOR EXAMPLE- COUMADIN, PLAVIX, AGGRENOX, PLATEL, PRADAXA, OR XARELTO) NO . WHEN WAS YOUR LAST DOSE? DATE: TIME: . NEUROLOGY: HAVE YOU FALLEN IN THE PAST 12 MONTHS? NO . ANY NEW EXTREMITY NUMBNESS OR WEAKNESS? NO . CARDIOLOGY: DO YOU HAVE A PACEMAKER OR DEFIBRILLATOR? NO . RESPIRATORY: HAVE YOU BEEN SICK IN THE PAST WEEK? NO . FEVER NO . FLU LIKE SYMPTOMS? NO . COUGH NO . INTEGUMENTARY: DO YOU HAVE ANY RASHES OR OPEN SORES? NO . ALLERGIC/IMMUNO: ARE YOU ALLERGIC TO IV DYE? NO . ANY NEW ALLERGIES? NO . PSYCHIATRIC: DO YOU HAVE THOUGHTS OF HURTING YOURSELF OR SOMEONE ELSE? NO . ARE YOU ABUSED, NEGLECTED, OR IN AN UNSAFE ENVIRONMENT? NO . ENDOCRINOLOGY: ARE YOU DIABETIC? NO . OTHER: DO YOU NEED ANY PRESCRIPTIONS? NO . IF YES, PLEASE LIST: ____ . ANY NEW PROBLEMS WITH YOUR MEDICATIONS? NO . WHEN DID YOU LAST EAT? ____ . WHEN DID YOU LAST DRINK? ____ . WHAT DID YOU LAST DRINK? ____ . NAME OF PERSON DRIVING YOU HOME? ____ . DO YOU HAVE ANY OTHER QUESTIONS OR CONCERNS NO . VITAL SIGNS WT 128.6 LBS, HT 61 IN, BMI 24.30 INDEX, BP 131/79 MM HG, HR 77 /MIN, RR 16 /MIN, TEMP 97.5 F, OXYGEN SAT % 100%, NA INITIALS SC 10:56, REVIEWED BY: EM. EXAMINATION GENERAL EXAMINATION: PATIENT IS ALERT O X 3 AND COOPERATIVE. LUNGS CLEAR, TO AUSCULTATION. HEART: NO MURMURS OR GALLOPS; FACIAL CRANIAL NERVES ARE GROSSLY NORMAL. GOOD SYMMETRY OF FACIAL MUSCLE MOVEMENT. NORMAL VISUAL AGUAYO. RIGHT LEG IS WEAKER AT EXTENSION AND FLEXION. STRAIGHT LEG RAISE OF THE RIGHT LEG IS POSITIVE AT 40 DEGREES FOR RADICULOPATHY. MRI OF THE THORACIC SPINE DONE ON 07/08/2018 AND MRI OF THE LUMBAR SPINE DONE ON 07/08/2018 BOTH SHOW ADEQUATE SPACING FOR THE DCS CABLES TO PASS THROUGH. ASSESSMENTS LUMBAR POST-LAMINECTOMY SYNDROME - M96.1 (PRIMARY) INTERVERTEBRAL DISC DISORDER WITH RADICULOPATHY OF LUMBAR REGION - M51.16 INTERVERTEBRAL DISC DISORDER WITH RADICULOPATHY OF LUMBOSACRAL REGION - M51.17 TREATMENT LUMBAR POST-LAMINECTOMY SYNDROME CLINICAL NOTES: WE DISCUSSED SEVERAL ISSUES WITH MS. LI'S PAIN MANAGEMENT CASE. AT THIS TIME WE ARE READY TO MOVE FORWARD WITH THE DCS TRIAL ON 11/10/2018. WE DISCUSSED THE BENEFITS, RISKS, AND ALTERNATIVES OF THE TRIAL AND THE PATIENT WOULD LIKE TO PROCEED. THE PATIENT WILL STOP CELEBREX PRIOR TO THE TRIAL. THE PATIENT WILL HAVE HER PRIMARY CARE PHYSICIAN SEND US A MEDICAL CLEARANCE SO SHE IS ABLE TO MOVE FORWARD WITH THE TRIAL. THE PATIENT WILL FOLLOW UP ON SATURDAY THAT WEEK FOR LEAD PULLS. INSTRUCTIONS WERE GIVEN, QUESTIONS WERE ANSWERED, PATIENT REPORTS UNDERSTANDING AND AGREES WITH THE PLAN. I, CRISTINA AGARWAL, DOCUMENTED THE ABOVE INFORMATION ACTING A SCRIBE FOR DR. ALLAN. I HAVE REVIEWED THE ABOVE DOCUMENT, WRITTEN BY CRISTINA VAZQUEZIBKenny AND I VERIFY THAT IT IS ACCURATE. . OTHERS START KEFLEX CAPSULE, 500 MG, 1 CAPSULE, ORALLY, THREE TIMES DAILY, 10 DAY(S), 30, REFILLS 0 PROCEDURES PN WORKMANS' COMP OPINION IN YOUR OPINION, WAS THE INCIDENT THAT THE PATIENT DESCRIBED THE COMPETENT MEDICAL CAUSE OF THIS INJURY/ILLNESS? YES ARE THE PATIENT'S COMPLAINTS CONSISTENT WITH HIS/HER HISTORY OF THE INJURY/ILLNESS? YES IS THE PATIENT'S HISTORY OF THE INJURY/ILLNESS CONSISTENT WITH YOUR OBJECTIVE FINDING? YES WHAT IS THE PERCENTAGE OF TEMPORARY IMPAIRMENT? MODERATE TO MARKED = 66.7% IS THE PATIENT WORKING? NO DOCTOR ON SITE: JUNG JOY MD PROCEDURE CODES FA211 ESTABILISHED PATIENT [facility] FACILITY CHARGE [id number] CURRENT MEDS W/DOSAGES DOCUMENTED G8730 PAIN ASSESS POS TOOL F/U PLAN DOC DISPOSITION & COMMUNICATION FOLLOW UP 3 WEEKS ELECTRONICALLY SIGNED BY JUNG ALLAN MD, MD ON 11/10/2018 AT 04:54 PM EDT DISCLAIMER : THIS IS A VISIT SUMMARY EXTRACTED FROM THE [employer] CHART. IT IS NOT A COPY OF THE [employer] PROGRESS NOTE. MTDD
== END ==
LOC: M PAIN 11:15
PROVIDERS: ATTEND Anesthesiology
DX: M96.1 Postlaminectomy syndrome, not elsewhere classified (principal); M51.16 Intervertebral disc disorders with radiculopathy, lumbar region; M51.17 Intervertebral disc disorders with radiculopathy, lumbosacral region; I73.00 Raynaud's syndrome without gangrene; L71.9 Rosacea, unspecified; Z79.899 Other long term (current) drug therapy; Z88.8 Allergy status to other drugs, medicaments and biological substances

== ENCOUNTER 2018-11-10 07:49 | Day surgery (SDC) | payer OTHER ==
[~2018-11-10] VITALS: Ht 154.9 cm; Wt 58.1 kg
[2018-11-10] VITALS (7 sets, daily range): BP systolic 113–131; BP diastolic 75–81
[2018-11-10] MEDS ORDERED: LIDOCAINE 2% INJ 100 MG/5 ML SDV (FOR ANES.) As Ordered ONE (07:59)
[2018-11-10] MEDS ORDERED: MIDAZOLAM INJ 2 MG/2 ML VIAL (J2250) As Ordered ONE (07:59)
[2018-11-10] MEDS ORDERED: PROPOFOL 200 MG/20 ML VIAL As Ordered ONE (07:59)
[2018-11-10] MEDS ORDERED: ONDANSETRON 4MG/2ML VIAL (J2405) As Ordered ONE (07:59)
[2018-11-10] MEDS ORDERED: fentaNYL 100 MCG/2 ML INJECTION (J3010) As Ordered ONE (08:00)
[2018-11-10] MEDS ORDERED: ceFAZolin SOD 1 GM in D5W MINI-BAG PLUS 50 ML IV ONE ×2 (08:30→17:00)
[2018-11-10 09:16] LABS: URINE PREG TEST NEGATIVE (NEGATIVE)
[2018-11-10] MEDS ORDERED: LIDOCAINE W/EPINEPHRINE 1% 20ML VIAL As Ordered ONE (09:18)
[2018-11-10] MEDS ORDERED: LR 1,000 ML IV ONE (09:45)
[2018-11-10] MEDS ORDERED: PERCOCET 5MG/325MG TAB As Ordered ONE (11:40)
[2018-11-10] MEDS ORDERED: LR 1,000 ML IV SCH (11:45)
[2018-11-10] MEDS ORDERED: ONDANSETRON 4MG/2ML VIAL (J2405) IV PRN (11:45)
[2018-11-10] MEDS ORDERED: PERCOCET 5MG/325MG TAB PO PRN (11:45)
[2018-11-10] MEDS ORDERED: MORPHINE 10 MG/ML 1ML VIAL (J2270) IV PRN (11:45)
[2018-11-10] MEDS ORDERED: traMADol 50 MG TAB PO PRN (12:00)
[2018-11-10] MEDS ORDERED: CYCLOBENZAPRINE 5MG TABLET PO PRN (12:00)
--- NOTE | 2018-11-10 12:34 | REP ---
Partial thoracic spine series: Two views. History: Post laminectomy pain syndrome. 5 minutes 24 seconds of fluoroscopy time was utilized. Findings: A sequence of two last image hold fluoroscopically obtained spot radiographs of the thoracic spine document dorsal column stimulator lead placement. Electronically Signed by Tobi Canada MD 11/10/2018 07:18 P
--- NOTE | 2018-11-10 15:15 | CR.PDOC ---
General Date of Consultation: November 10, 2018 Referring Provider: Nasir Taveras MD Consultation REASON FOR CONSULTATION/CHIEF COMPLAINT: Medical Co management HISTORY OF PRESENT ILLNESS: Patient admitted after elective spinal cord stimulator placement for overnight observation. ALLERGIES: Please see below. HOME MEDICATIONS: Please see below. PAST MEDICAL HISTORY: HERNIATED DISC AND BONE SPUR BURSITIS L SHOULDER ROSACEA RAYNAUD'S FACET JOINT PROBLEM, ARTHRITIS. SEVERE CERVICAL DYSPLASIA, TREATED [facility] LEEP 08/2015 SURGICAL HISTORY ELBOW SURGERY-LEF COLPOSCOPY WITH TRISHA 05/21/14 BACK SURGERY 07/07/14 COLPOSCOPY WITH TRISHA 06/20/15 SPINAL FUSION 10/2015 FAMILY HISTORY FATHER: ALIVE 74 YRS, HYPERTENSION, BORDERLINE DIABETES, DIAGNOSED WITH HYPERTENSION MOTHER: ALIVE 71 YRS, DIABETES, HYPERTENSION, ?ATRIAL FIBRILLATION. NO OSTEOPOROSIS, NO FX., HEART DISEASE, CANCER, DIABETES, HYPERTENSION 2 BROTHER(S) , 2 SISTER(S) . 1DAUGHTER(S) - HEALTHY. SOCIAL HISTORY: Marital status and/or living arrangements: Children: 1 DAUGHTER Employment: UNEMPLOYED Tobacco use: NO ETOH: OCCASIONALLY Illicit drug use: NO IV drug use: NO REVIEW OF SYSTEMS: VITALS: BELOW CONSTITUTIONAL: NO FEVER OR CHILLS, NO FATIGUE OR MALAISE HEENT: NOEAR PAIN,NO EYE PAIN, NO THROAT PAIN CARDIOVASCULAR: NOCHEST PAIN, NO PALPITATION, NO ORTHOPNEA NO PND RESPIRATORY: NO SOB, NO COUGH OR PHLEGM GENITOURINARY: NO DYSURIA, HEMATURIA OR URINARY RETENTION MUSCULOSKELETAL: BACK PAIN GASTROINTESTINAL: NO NAUSEA OR VOMITING OR ABDOMINAL PAIN OR DIARRHEA SKIN: NO RASH NEUROLOGICAL: NO HEADACHE,OR WEAKNESS OR CONFUSION PHYSICAL EXAMINATION: VITAL SIGNS: Please see below. GENERAL APPEARANCE: PT AWAKE ALERT AND ORIENTED X 3 , LYING DOWN IN BED IN NO ACUTE DISTRESS HEENT: NORMOCEPHALIC, ATRAUMATIC RESPIRATORY: BILATERAL VESICULAR BREATH SOUNDS, NO RONCHI OR CRACKLES CARDIOVASCULAR: S1, S2 NORMAL, REGULAR, NO RUB, MURMUR OR GALLOP ABDOMEN:SOFT, NONTENDER, NO ORGANOMEGALY, BOWEL SOUNDS NORMAL EXTREMITIES: NO EDEMA LABORATORY DATA: Please see below. ASSESSMENT/PLAN: 48 YEAR OLD FEMALE WITH PMH OF DEPRESSION, INSOMNIA CHRONIC LOW BACK PAIN SINCE 2013 AFTER A WORK RELATED INJURY ADMITTED HERE FOR OVERNIGHT OBSERVATION UNDER DR ALLAN'S CARE AFTER PLACEMENT OF TRIAL SPINAL CORD STIMULATOR. BACK PAIN S/P PLACEMENT OF TRIAL SPINAL CORD STIMULATOR PAIN MANAGEMENT PER DR ALLAN DEPRESSION CONTINUE BUPROPRION INSOMNIA CONTINUE AMBIEN DVT PROPHYLAXIS EARLY AMBULATION Vital Signs/I&O Vital Signs Date Time Temp Pulse Resp B/P (MAP) Pulse Ox O2 Delivery O2 Flow Rate FiO2 11/10/18 13:01 16 11/10/18 12:10 74 130/82 (98) 100 11/10/18 12:00 99.1 Laboratory Data Labs 24H Laboratory Tests 2 11/10/18 09:03: Urine Test NEGATIVE Allergies Coded Allergies: cortisone (Verified Allergy, Intermediate, swelling, 11/10/18) Home Medications Scheduled (Emergen-C Immune) 1 Mike Mike, 1,000 MG PO DAILY, (Reported) Bupropion HCl (Bupropion HCl) 75 Mg Tablet, 75 MG PO BID, (Reported) Celecoxib (Celebrex) 200 Mg Cap, 200 MG PO DAILY, (Reported) Clindamycin Phos/Benzoyl Perox (Benzaclin Gel) 1 Gel Gel, 1 GEL TOP PRN, (Reported) Docusate Sodium (Colace) 100 Mg Cap, 200 MG PO BID, (Reported) Folic Acid (Folic Acid) 1 Mg Tab, 800 MG PO DAILY, (Reported) Gabapentin (Gabapentin) 600 Mg Tablet, 600 MG PO BID, (Reported) Metronidazole (Metrogel) 55 Gm Gel.w.pump, 1 % EX BID, (Reported) Multivitamin (Multivitamins) 1 Cap Cap, 1 CAP PO DAILY, (Reported) Norethindrone-E.estradiol-Iron (Loestrin Fe 1-20 Tablet) 1 Each Tablet, 1 TAB PO DAILY, (Reported) Zolpidem Tartrate (Ambien) 10 Mg Tab, 10 MG PO QHS, (Reported) Scheduled PRN Acetaminophen (Acetaminophen) 500 Mg Tab, 500 MG PO TID PRN for PAIN, (Reported) Alprazolam (Xanax) 0.25 Mg Tab, 0.25 MG PO TIDP PRN for ANXIETY/AGITATION, (Reported) Cyclobenzaprine HCl (Cyclobenzaprine HCl) 10 Mg Tablet, 10 MG PO DAILY PRN for MUSCLE SPASMS, #15 (Reported) Tramadol HCl (Tramadol HCl) 50 Mg Tab, 50 MG PO Q4HP PRN for PAIN, (Reported) DOUGIE MENDOZA MD November 10, 2018 13:43
[2018-11-10] MEDS: GABAPENTIN 300 MG CAP PO SCH (15:22)
[2018-11-10] MEDS: buPROPion 75 MG TAB PO SCH (17:32)
[2018-11-10] MEDS: traMADol 50 MG TAB PO PRN (20:57)
[2018-11-10] MEDS ORDERED: zolPIDEM TARTRATE 5 MG TAB PO SCH (21:00)
[2018-11-10] MEDS ORDERED: GABAPENTIN 300 MG CAP PO SCH (21:00)
[2018-11-11] VITALS: BP 117/69
[2018-11-11] MEDS ORDERED: ceFAZolin SOD 1 GM in D5W MINI-BAG PLUS 50 ML IV ONE (02:00)
[2018-11-11 04:00] VITALS: BP 129/70
[2018-11-11] MEDS: buPROPion 75 MG TAB PO SCH (05:57)
[2018-11-11] MEDS: GABAPENTIN 300 MG CAP PO SCH (05:57)
[2018-11-11] MEDS: traMADol 50 MG TAB PO PRN (05:57)
[2018-11-11 08:30] VITALS: BP 133/72
--- NOTE | 2018-11-16 21:05 | ROPAIN ---
DATE OF PROCEDURE: 11/14/2018 CHIEF COMPLAINT: Low back and leg pain. PREPROCEDURE DIAGNOSIS: Lumbar postlaminectomy pain syndrome and lumbar radiculopathy. POSTPROCEDURE DIAGNOSIS: Lumbar postlaminectomy pain syndrome and lumbar radiculopathy. PROCEDURE: Spinal column stimulator trial. SURGEON: Dr. Nasir Mcginnis ROLLER COASTER ENGINEER:none ANESTHESIA: Local with monitored anesthesia care. DESCRIPTION OF PROCEDURE: Ms. Ward is a 48-year-old female patient with a history of chronic low back and leg pain. She is being brought to the operating room for a spinal column stimulator trial. She has tried medication management and interventional therapy but unfortunately the pain has persisted. The patient denies unexplainable weight loss, fever, chills, changes in her urinary or bowel control. PROCEDURE NOTE: After consent was reviewed with the patient, the patient was brought to the procedure room and placed in the prone position. The thoracolumbar area and cleaned with Betadine solution and draped aseptically. Procedure was done under sterile conditions. She received cephazolin 1 gram intravenous (IV). The target point was selected at the intralaminar level of T12-L1. A 16 gauge Tuohy needle was advanced under fluoroscopy until I reached the intralaminar space of T12-L1 by the loss of resistance technique. I used local anesthesia to numb the skin and the subcutaneous tissue. After reaching the epidural space, a 8-contact lead from [email or web address] was advanced through the needle to the posterior and midline epidural space and advanced to the level of T7 and T8. A decision was made to place a second lead. Target was selected at the intralaminar level of L1-L2, and then by the loss of resistance technique and local anesthesia, a second Tuohy needle was advanced. The epidural space was reached 7 cm deep into the skin by the loss of resistance technique. A second 8-contact lead from [email or web address] was advanced through the needle and advanced to the posterior and medial aspect of the epidural space and placed parallel to the first lead. After the leads were parallel, I attached extension cables to the leads, which were attached to the computer system of [email or web address]. We then provided stimulation to the patient. I started doing the programming that last about 30 minutes. I changed the impedance. I changed the wave length, switching the amplitude, voltage and the contact used. Final position of the leads were at the position of T6, T7, and T8. X-ray films were done and placed in the electronic record for future reference. I removed the extensions. I removed the stylet. I secured the leads to the patient's skin with Steri-Strips and Tegaderm. The procedure was done without complication. The patient was sent to the recovery room to start the trial. ROXIE
== END 2018-11-11 09:18 | disposition home or self-care (01) ==
LOC: M SDC 07:49 → M PED 12:30 → M SDC 11-11 09:18
PROVIDERS: ATTEND Anesthesiology
DX: M96.1 Postlaminectomy syndrome, not elsewhere classified (principal); M51.16 Intervertebral disc disorders with radiculopathy, lumbar region; M48.061 Spinal stenosis, lumbar region without neurogenic claudication; G89.4 Chronic pain syndrome; L71.9 Rosacea, unspecified; F43.23 Adjustment disorder with mixed anxiety and depressed mood; F32.9 Major depressive disorder, single episode, unspecified; Z88.8 Allergy status to other drugs, medicaments and biological substances; Z79.899 Other long term (current) drug therapy

== ENCOUNTER → 2018-11-14 | Outpatient (CLI) | payer OTHER ==
--- NOTE | 2018-11-14 19:33 | REP ---
FLUOROSCOPIC GUIDANCE FOR SPINE PROCEDURE: 11/14/2018: Clinical history: Back pain, lead pole. Findings: Two images from C-arm fluoroscopy provided to Dr. Mcginnis of the pain clinic. Images centered lower thoracic spine show leads in the midline neural canal. Two images show midline dorsal column stimulator leads extending to the level of T5-6 interspace superiorly on the second image. Fluoroscopy time: 7 seconds Electronically Signed by Estevan Burnette MD 11/15/2018 11:33 A
--- NOTE | 2018-11-24 00:02 | ECWPNPC ---
PATIENT NAME: TRESSA LI : 1970 GENDER: FEMALE VISIT DATE: 11/14/2018 DISCHARGE DATE: 11/14/18 1231 VISIT LOCKED DATE TIME: PHYSICIAN: JUNG ALLAN MD RESOURCE: JUNG ALLAN MD REASON FOR APPOINTMENT 1. W/C LEAD PULL HISTORY OF PRESENT ILLNESS HISTORY OF PRESENT ILLNESS: PAIN THE PATIENT DESCRIBES THE PAIN... 48 YEAR OLD FEMALE PATIENT WITH A HISTORY OF CHRONIC BACK AND LEG PAIN. THE PATIENT DESCRIBES THE PAIN SHARP, STABBING, AND DAILY WITH A PAIN SCORE OF 3-8/10 DEPENDING ON PHYSICAL ACTIVITY. 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 THE PATIENT SAYS HER PAIN IS IN HER LOW BACK AND RADIATES DOWN HER RIGHT LEG. THE PATIENT RECEIVED A DCS TRIAL DONE ON 11/10/2018, WHICH SHE REPORTS MORE THAN 80 PERCENT PAIN RELIEF. THE PATIENT SAYS SHE IS VERY HAPPY WITH THE RESULTS AND THERE WAS NO NEED TO USE HER MEDICATION DURING THE TRIAL WEEK. THE PATIENT SAYS SHE WOULD LIKE TO MOVE FORWARD WITH THE DCS IMPLANT. PATIENT DENIES UNEXPLAINABLE WEIGHT LOSS, FEVER, CHILLS, NEW CHANGES ON HER URINARY OR BOWEL CONTROL. FALL RISK SCREENING: SCREENING :NO FALLS REPORTED IN THE LAST YEAR CURRENT MEDICATIONS TAKING KEFLEX 500 MG CAPSULE 1 CAPSULE ORALLY THREE TIMES DAILY TAKING METROGEL 1 % GEL 1 APPLICATION TO AFFECTED AREA EXTERNALLY NEEDED FOR ROSACEA TAKING LOESTRIN FE 07/20 TAB TAKE ONE TABLET BY MOUTH EVERY DAY TAKING ZOLPIDEM TARTRATE 10 MG TABLET 0.5 TABLET AT BEDTIME NEEDED ORALLY ONCE A DAY TAKING XANAX 0.25 MG TABLET 1 TABLET ORALLY THREE TIMES A DAY NEEDED TAKING ASIA-C 1000-50 MG TABLET 1 TAB(S) ORALLY ONCE A DAY TAKING FOLIC ACID 800 MG ORALLY DAILY TAKING VITAMIN D 1 TABLET 1 TABLET ORALLY ONCE A DAY TAKING BUPROPION HCL 75 MG TABLET 2 TABLET ORALLY BID TAKING MULTIVITAMINS TABLET 1 TABLET ORALLY ONCE A DAY TAKING ACETAMINOPHEN-500 MG 500 MG TABLETS 1-2 TABLETS ORALLY EVERY 6 HOURS NEEDED FOR PAIN TAKING STOOL SOFTENER 100 MG CAPSULE 1 ORALLY ONCE PER DAY PRN TAKING CYCLOBENZAPRINE HCL 10 MG TABLET 0.5 TABLET ORALLY THREE TIMES A DAY NEEDED TAKING CELEBREX 100 MG CAPSULE 1 ORALLY BID, NOTES: NOT TAKING TAKING GABAPENTIN 300 MG CAPSULE 2 CAPSULE ORALLY TWICE DAILY TAKING TRAMADOL HCL 50 MG TABLET 1 TABLET NEEDED ORALLY Q8H MDD3 TAKING MELATONIN 10 MG TABLET DISINTEGRATING 1 CAPSULE AT BEDTIME NEEDED WITH FOOD ORALLY DAILY TAKING FLUOXTEINE 40 40MG TABLET 1 TAB(S) ORAL ONCE A DAY NOT-TAKING HYDROXYZINE HCL 50 MG TABLET ORALLY EVERY OTHER NIGHT NOT-TAKING PERCOCET 7.5-325 MG TABLET 1/2 TABLET ORALLY ONCE A DAY NEEDED MEDICATION LIST REVIEWED AND RECONCILED WITH THE PATIENT PAST MEDICAL HISTORY HERNIATED DISC AND BONE SPUR BURSITIS L SHOULDER ROSACEA RAYNAUD'S FACET JOINT PROBLEM, ARTHRITIS. SEVERE CERVICAL DYSPLASIA, TREATED [facility] LEEP 08/2015 ALLERGIES CORTISONE: SWELLING - ALLERGY SURGICAL HISTORY ELBOW SURGERY-LEFT COLPOSCOPY WITH TRISHA 05/21/14 BACK SURGERY 07/07/14 COLPOSCOPY WITH TRISHA 06/20/15 SPINAL FUSION 10/2015 FAMILY HISTORY FATHER: ALIVE 74 YRS, HYPERTENSION, BORDERLINE DIABETES, DIAGNOSED WITH HYPERTENSION MOTHER: ALIVE 71 YRS, DIABETES, HYPERTENSION, ?ATRIAL FIBRILLATION. NO OSTEOPOROSIS, NO FX., CANCER, DIABETES, HYPERTENSION, HEART DISEASE 2 BROTHER(S) , 2 SISTER(S) . 1DAUGHTER(S) - HEALTHY. ONE SISTER\\\/ONE BROTHER WITH HYPERTENSION. DENIES FAMILY HX OF B\\\/C\\\/O CANCERS. SOCIAL HISTORY GENERAL: TOBACCO USE ARE YOU A:NONSMOKER VAPORNO E-CIGARETTENO EDUCATION LEVEL OF EDUCATION:HIGH SCHOOL DIET: REGULAR. LANGUAGE LANGUAGES SPOKEN:TELUGU RECREATIONAL DRUG USE DRUG USE? NO , PATIENT DENIES ABUSE OR MISSUSED OF ANY MEDICATION . , PATIENT DENIES USE OF ANY ILLEGAL SUBSTANCE INCLUDING MARIJUANA OR COCAINE .. EXERCISE: WALKS, AT LEAST 3X/WEEK. LEARNING BARRIERS / SPECIAL NEEDS ABILITY TO UNDERSTAND VERBAL INSTRUCTIONS GOOD :, ABILITY TO UNDERSTAND WRITTEN INSTRUCTIONS GOOD , KNOWLEDGE OF EDUCATIONAL NEEDS/TREATMENT PLAN GOOD , CHURCH? NO , PLANS TO OVERCOME BARRIERS WRITTEN MATERIALS , LEARNING PREFERENCE NO PREFERENCE , ORIENTED TO PLAN OF CARE: PATIENT , PAIN MANAGEMENT PATIENT , TEACHING MATERIALS DEMONSTRATION/VERBAL INSTRUCTION , RESPONSE TO EDUCATION EXPLAINES ACCURATELY/VERBALIZES UNDERSTANDING , TEACHING MATERIALS DEMONSTRATION/VERBAL INSTRUCTION , RESPONSE TO EDUCATION EXPLAINS ACCURATELY/VERBALIZES UNDERSTANDING. PAIN CLINIC PFS, CLERGY, PUBLIC HEALTH REFERRALS PFS REFERRAL NEEDED?NO CLERGY REFERRAL NEEDED?NO PUBLIC HEALTH REFERRAL NEEDED?NO WAS THE PROVIDER NOTIFIED OF ANY PERTINENT INFO?NO HAS THE PATIENT BEEN EDUCATED REGARDING HIS/HER PLAN OF CARE?YES HAS THE PATIENT BEEN EDUCATED REGARDING PAIN, THE RISK FOR PAIN, THE IMPORTANCE OF EFFECTIVE PAIN MANAGEMENT, AND THE PAIN ASSESSMENT PROCESS?YES LATEX QUESTIONNAIRE LATEX ALLERGY : HAVE YOU EVER DEVELOPED ANY TYPE OF REACTION AFTER HANDLING LATEX PRODUCTS SUCH RUBBER GLOVES, CONDOMS, DIAPHRAGMS, BALLOONS, SOCKS, OR UNDERWEAR?NO LATEX ALLERGY : HAVE YOU EVER DEVELOPED ANY TYPE OF REACTION DURING OR AFTER DENTAL APPOINTMENT, VAGINAL/RECTAL EXAMINATION, SURGICAL PROCEDURE, OR ANY OTHER EXPOSURE?NO LATEX RISK : HAVE YOU EVER HAD ANY DIFFICULTY BREATHING OR HIVES AFTER EATING OR HANDLING ANY FRUITS, OR VEGETABLES; SUCH KIWI, BANANAS, STONE FRUITS, OR CHESTNUTSNO LATEX RISK : DO YOU HAVE A PREVIOUS PERSONAL HISTORY OF MORE THAN NINE SURGERIES, SPINA BIFIDA, OR REPEATED CATHERTIZATIONS? NO LATEX RISK : ARE YOU FREQUENTLY EXPOSED TO LATEX PRODUCTS IN YOUR OCCUPATION?NO DATE ASKED : 09/30/2018 ADVANCE DIRECTIVE ADVANCE DIRECTIVE DISCUSSED WITH PATIENT:YES HCP - DENIA LI (DAUGHTER) [id number] JUDAISM MARITAL STATUS: .. ALCOHOL SCREENING HOW OFTEN DID YOU HAVE A DRINK CONTAINING ALCOHOL IN THE PAST YEAR? 2 TO 4 TIMES A MONTH (2 POINTS) , HOW MANY DRINKS DID YOU HAVE ON A TYPICAL DAY WHEN YOU WERE DRINKING IN THE PAST YEAR? 1 OR 2 DRINKS (0 POINTS) , HOW OFTEN DID YOU HAVE 6 OR MORE DRINKS ON ON OCCASION IN THE PAST YEAR? NEVER (0 POINTS) , DID YOU HAVE A DRINK CONTAINING ALCOHOL IN THE PAST YEAR? YES , POINTS 0 , INTERPRETATION NEGATIVE. OCCUPATION: DISABLED. REVIEWED WITH PATIENT 08/04/18 1441 JSREVIEWED WITH PATIENT 08/04/18 1013 JSREVIEWED WITH PATIENT 09/30/18 0900 JS. HOSPITALIZATION/MAJOR DIAGNOSTIC PROCEDURE SURGERY RELATED REVIEW OF SYSTEMS REVIEWED BY: PROVIDER: JUNG ALLAN MD . CONSTITUTIONAL: ANY CHANGE IN YOUR MEDICAL CONDITION? NO . CHILLS NO . FEVER NO . INFECTION: DO YOU HAVE NEW INFECTIONS? NO . DO YOU HAVE HISTORY OF MRSA? NO . MUSCULOSKELETAL: ANY NEW PATTERNS OF PAIN OR NUMBNESS? YES PT HAD TRIAL DORSAL COLUMN STIMULATOR, PT REPORTS GOOD RESPONSE. . GASTROENTEROLOGY: ANY NEW CHANGE IN BOWEL CONTROL? NO . GENITOURINARY: ANY NEW CHANGE IN BLADDER CONTROL? NO . IS THERE A CHANCE YOU COULD BE ? NO . HEMATOLOGY/LYMPH: DO YOU TAKE ANY BLOOD THINNERS? (FOR EXAMPLE- COUMADIN, PLAVIX, AGGRENOX, PLATEL, PRADAXA, OR XARELTO) NO . WHEN WAS YOUR LAST DOSE? DATE: TIME: . NEUROLOGY: HAVE YOU FALLEN IN THE PAST 12 MONTHS? NO . ANY NEW EXTREMITY NUMBNESS OR WEAKNESS? NO . CARDIOLOGY: DO YOU HAVE A PACEMAKER OR DEFIBRILLATOR? YES, DCS TRIAL . RESPIRATORY: HAVE YOU BEEN SICK IN THE PAST WEEK? NO . FEVER NO . FLU LIKE SYMPTOMS? NO . COUGH NO . INTEGUMENTARY: DO YOU HAVE ANY RASHES OR OPEN SORES? NO . ALLERGIC/IMMUNO: ARE YOU ALLERGIC TO IV DYE? NO . ANY NEW ALLERGIES? NO . PSYCHIATRIC: DO YOU HAVE THOUGHTS OF HURTING YOURSELF OR SOMEONE ELSE? NO . ARE YOU ABUSED, NEGLECTED, OR IN AN UNSAFE ENVIRONMENT? NO . ENDOCRINOLOGY: ARE YOU DIABETIC? NO . OTHER: DO YOU NEED ANY PRESCRIPTIONS? NO . IF YES, PLEASE LIST: ____ . ANY NEW PROBLEMS WITH YOUR MEDICATIONS? NO . WHEN DID YOU LAST EAT? ____ . WHEN DID YOU LAST DRINK? ____ . WHAT DID YOU LAST DRINK? ____ . NAME OF PERSON DRIVING YOU HOME? ____ . DO YOU HAVE ANY OTHER QUESTIONS OR CONCERNS NO . VITAL SIGNS WT 128.8 LBS, HT 61 IN, BMI 24.33 INDEX, BP 133/85 MM HG, HR 89 /MIN, RR 16 /MIN, TEMP 98.4 F, OXYGEN SAT % 99%, SAFE IN ENV? (Y/N) YES, NA INITIALS SC 10:41, REVIEWED BY: DAYANNA. EXAMINATION GENERAL EXAMINATION: PATIENT IS ALERT O X 3 AND COOPERATIVE. X-RAYS ARE BEING PERFORMED TODAY TO SEE POSITION OF THE LEADS. ASSESSMENTS POST LAMINECTOMY SYNDROME - M96.1 (PRIMARY) TREATMENT POST LAMINECTOMY SYNDROME [facility] FLUORO GUIDANCE (PAIN)[id number] CLINICAL NOTES: WE DISCUSSED SEVERAL ISSUES WITH MS. LI'S PAIN MANAGEMENT CASE. THE PATIENT HAD A DCS TRIAL PROCEDURE DONE ON 11/10/2018 AND IS HERE TODAY TO HAVE THE LEADS REMOVED. THE PATIENT SAID SHE IS VERY HAPPY WITH THE PAIN RELIEF SHE EXPERIENCED AND WOULD LIKE TO MOVE FORWARD WITH THE DCS IMPLANT. I AM REFERRING THE PATIENT TO NEUROSURGERY WITH [facility] FOR IMPLANT PROCEDURE. THE PATIENT WILL FOLLOW UP IN 2 MONTHS. INSTRUCTIONS WERE GIVEN, QUESTIONS WERE ANSWERED, PATIENT REPORTS UNDERSTANDING AND AGREES WITH THE PLAN. I, CRISTINA AGARWAL, DOCUMENTED THE ABOVE INFORMATION ACTING A SCRIBE FOR DR. ALLAN. I HAVE REVIEWED THE ABOVE DOCUMENT, WRITTEN BY CRISTINA FULTON AND I VERIFY THAT IT IS ACCURATE. . PROCEDURES PN WORKMANS' COMP OPINION IN YOUR OPINION, WAS THE INCIDENT THAT THE PATIENT DESCRIBED THE COMPETENT MEDICAL CAUSE OF THIS INJURY/ILLNESS? YES ARE THE PATIENT'S COMPLAINTS CONSISTENT WITH HIS/HER HISTORY OF THE INJURY/ILLNESS? YES IS THE PATIENT'S HISTORY OF THE INJURY/ILLNESS CONSISTENT WITH YOUR OBJECTIVE FINDING? YES WHAT IS THE PERCENTAGE OF TEMPORARY IMPAIRMENT? MODERATE TO MARKED = 66.7% IS THE PATIENT WORKING? NO DOCTOR ON SITE: JUNG JOY MD DISPOSITION & COMMUNICATION FOLLOW UP 2 MONTHS ELECTRONICALLY SIGNED BY JUNG ALLAN MD, MD ON 11/23/2018 AT 08:59 AM EDT DISCLAIMER : THIS IS A VISIT SUMMARY EXTRACTED FROM THE [facility] CHART. IT IS NOT A COPY OF THE [facility] PROGRESS NOTE. [id number]
== END ==
LOC: M PAIN 10:15
PROVIDERS: ATTEND Anesthesiology
DX: M96.1 Postlaminectomy syndrome, not elsewhere classified (principal); I73.00 Raynaud's syndrome without gangrene; M19.90 Unspecified osteoarthritis, unspecified site; Z79.899 Other long term (current) drug therapy; Z88.8 Allergy status to other drugs, medicaments and biological substances

== ENCOUNTER → 2019-03-10 | Outpatient (CLI) | payer OTHER ==
[2019-03-10 14:16] LABS: BASO % 0.6 % (0.0-1.0); EOS # 0.1 10^3/uL (0.0-0.5); EOS % 1.7 % (0.0-3.0); HEMATOCRIT 42.6 % (36.0-47.0); HEMOGLOBIN 14.3 g/dl (12.0-15.5); MEAN CORPUSCULAR HEMOGLOBIN 34.5 pg (27.0-33.0); MEAN CORPUSCULAR HGB CONC 33.6 g/dl (32.0-36.5); MEAN CORPUSCULAR VOLUME 102.7 fl (80.0-96.0); MONO # 0.6 10^3/uL (0.0-0.8); MONO % 9.2 % (0.0-5.0); NEUTROPHILS # 4.5 10^3/uL (1.5-8.5); NEUTROPHILS % 72.2 % (36.0-66.0); PLATELET COUNT, AUTOMATED 319 10^3/uL (150-450); RED BLOOD COUNT 4.15 10^6/uL (4.00-5.40); WHITE BLOOD COUNT 6.3 10^3/uL (4.0-10.0)
[2019-03-10 14:23] LABS: BLOOD UREA NITROGEN 22 MG/DL (7-18); CALCIUM LEVEL 8.9 MG/DL (8.5-10.1); CARBON DIOXIDE LEVEL 26 MEQ/L (21-32); CHLORIDE LEVEL 106 MEQ/L (98-107); CREATININE FOR GFR 0.76 MG/DL (0.55-1.30); GLOMERULAR FILTRATION RATE > 60.0 (>58); GLUCOSE, FASTING 77 MG/DL (70-100); POTASSIUM SERUM 4.7 MEQ/L (3.5-5.1); SODIUM LEVEL 140 MEQ/L (136-145)
== END ==
LOC: M SMT 09:12
PROVIDERS: ATTEND Neurological Surgery
DX: M54.10 Radiculopathy, site unspecified (principal)

== ENCOUNTER → 2019-09-02 | Outpatient (REF) | payer MEDICARE ==
[~2019-09-02] MED LIST changes: +FLUO10CA15 PO; -FLUO10CA8 PO; +FLUO20CA20 PO; -FLUO20CA8 PO
== END ==
LOC: M SFHCWAGY 17:08
PROVIDERS: ATTEND Specialist
DX: Z12.4 Encounter for screening for malignant neoplasm of cervix (principal); R87.89 Other abnormal findings in specimens from female genital organs
CPT/HCPCS: 87624; G0123

== ENCOUNTER → 2019-10-27 | Outpatient (CLI) | payer MEDICARE ==
[~2019-10-27] MED LIST changes: +CYCL-707 PO; -CYCL10TA PO
--- NOTE | 2019-10-27 08:06 | REPMRS ---
Patient History The patient states she had a clinical breast exam in August 2019.No known family history of cancer. Taking hormonal contraceptives for 15 years. Digital Woman Screen Mammo: October 27, 2019 - Exam #: [id number] Bilateral CC and MLO view(s) were taken. Technologist: Charisma Evans, Technologist Prior study comparison: September 11, 2018, bilateral digital woman screen mammo performed at [facility]. September 05, 2017, digital woman screen mammo performed at [facility]. September 03, 2016, digital woman screen mammo performed at [facility]. FINDINGS: There are scattered fibroglandular densities. There is a 5.5 mm smoothly marginated neodensity in the upper outer quadrant of the right breast which merits further evaluation. This is best seen on the MLO projection. There has been no other change in the appearance of the mammogram from the prior studies. There is a mild amount of scattered fibroglandular density which is fairly symmetric. There is no other interval development of dominant mass, architectural distortion, or grouped microcalcification suggestive of malignancy. 3-D tomosynthesis shows no additional findings. Assessment: BI-RADS/ACR category 0 mammogram, Incomplete: Need additional imaging evaluation and/or prior mammograms for comparison. Recommendation Ultrasound and special view mammogram of the right breast. This patient's Lifetime Breast Cancer Risk is estimated at 10.7 %. This mammogram was interpreted with the aid of an FDA-approved computer-aided dectection system. Electronically Signed By: Jean Pierre Canada MD 10/27/19 0806
== END ==
LOC: M WHC 06:42
PROVIDERS: ATTEND Specialist
DX: Z12.31 Encounter for screening mammogram for malignant neoplasm of breast (principal)

== ENCOUNTER → 2019-11-05 | Outpatient (CLI) | payer MEDICARE ==
[~2019-11-05] MED LIST changes: +EMER1PAK6 PO
--- NOTE | 2019-11-05 15:55 | REP ---
DIGITAL DIAGNOSTIC UNILATERAL RIGHT BREAST MAMMOGRAPHY WITH CAD AND FOCUSED RIGHT BREAST SONOGRAPHY: HISTORY: Screening mammography from October 27, 2019 was BIRADS category 0 because of a nodular density projecting in the upper outer quadrant for which diagnostic imaging was recommended. Comparison mammography September 11, 2018 and September 05, 2017. MAMMOGRAPHIC FINDINGS: Magnified focal spot compression CC, true mediolateral, and MLO views of the right breast are obtained. These confirm the presence of a well-circumscribed nodular density in the upper outer quadrant of the right breast as seen on screening mammography. This measures 5 mm in greatest diameter. Scattered fibroglandular elements are again seen. No spiculation or microcalcification is seen. Mammogram is otherwise unremarkable. SONOGRAPHIC FINDINGS: Focused right breast sonography is performed in the upper outer quadrant. In the 10-o'clock position, 5 cm from the nipple, there is a cyst measuring 0.5 x 0.2 x 0.4 cm. This is felt to account for the mammographic opacity. No sonographically suspicious finding. IMPRESSION: BIRADS 2: BI-RADS/ACR category 2 mammogram. Benign Findings. BIRADS category II benign findings. Small cyst identified in the upper outer quadrant of the right breast sonographically corresponding to the mammographic density. Repeat screening mammography recommended 1 year. This mammogram was interpreted with the aid of an FDA-approved computer-aided detection system. The patient letter being requested is M1.
== END ==
LOC: M WHC 12:46
PROVIDERS: ATTEND Specialist
DX: N60.01 Solitary cyst of right breast (principal)

== ENCOUNTER → 2019-11-22 | Outpatient (CLI) | payer MEDICARE | LOC: M LABSMTC 10:46 | PROVIDERS: ATTEND Anesthesiology | DX: Z01.812 Encounter for preprocedural laboratory examination (principal); Z11.59 Encounter for screening for other viral diseases ==

== ENCOUNTER 2019-11-25 11:07 | Day surgery (SDC) | payer MEDICARE ==
[~2019-11-25] VITALS: Ht 154.9 cm; Wt 56.7 kg
[~2019-11-25 11:07] MED LIST changes: +NS 1,000 ML IV ONE
[2019-11-25] MEDS ORDERED: propofoL 200 MG/20 ML VIAL As Ordered ONE (12:40)
[2019-11-25] MEDS ORDERED: LIDOCAINE 2% 100MG/5ML SDV (FOR ANES.) As Ordered ONE (12:40)
--- NOTE | 2019-11-25 13:24 | ROOR ---
Patient Name: Vee Ward Procedure Date: 11/25/2019 1:03 PM Date of : 1970 Age: 49 Room: [facility] Gender: Female Note Status: Finalized Procedure: Colonoscopy Indications: Screening for colorectal malignant neoplasm Providers: DO Josefina Montes MD: Monica Phillips MD Requesting Provider: Medicines: Propofol per Anesthesia Complications: No immediate complications. Procedure: Pre-Anesthesia Assessment: - Prior to the procedure, a History and Physical was performed, and patient medications and allergies were reviewed. The patient is competent. The risks and benefits of the procedure and the sedation options and risks were discussed with the patient. All questions were answered and informed consent was obtained. Patient identification and proposed procedure were verified by the physician, the nurse, the anesthesiologist and the graphics edit technician in the endoscopy suite. Mental Status Examination: alert and oriented. Airway Examination: normal oropharyngeal airway and neck mobility. Respiratory Examination: clear to auscultation. CV Examination: normal. Prophylactic Antibiotics: The patient does not require prophylactic antibiotics. Prior Anticoagulants: The patient has taken no previous anticoagulant or antiplatelet agents. ASA Grade Assessment: II - A patient with mild systemic disease. After reviewing the risks and benefits, the patient was deemed in satisfactory condition to undergo the procedure. The anesthesia plan was to use monitored anesthesia care (MAC). Immediately prior to administration of medications, the patient was re-assessed for adequacy to receive sedatives. The heart rate, respiratory rate, oxygen saturations, blood pressure, adequacy of pulmonary ventilation, and response to care were monitored throughout the procedure. The physical status of the patient was re-assessed after the procedure. The Colonoscope was introduced through the anus and advanced to the cecum, identified by appendiceal orifice and ileocecal valve. The colonoscopy was performed without difficulty. The patient tolerated the procedure well. Findings: Non-bleeding internal hemorrhoids were found during retroflexion. The hemorrhoids were small and Grade I (internal hemorrhoids that do not prolapse). The exam was otherwise without abnormality on direct and retroflexion views. Impression: - Non-bleeding internal hemorrhoids. - The examination was otherwise normal on direct and retroflexion views. - No specimens collected. Recommendation: - Patient has a contact number available for emergencies. The signs and symptoms of potential delayed complications were discussed with the patient. Return to normal activities tomorrow. Written discharge instructions were provided to the patient. - Repeat colonoscopy in 5-10 years for screening purposes. - Return to my office PRN. Errol Gutierrez DO 11/25/2019 1:24:05 PM Electronically signed by Errol Gutierrez DO Number of Addenda: 0 Note Initiated On: 11/25/2019 1:03 PM Estimated Blood Loss: Estimated blood loss: none.
[2019-11-25 13:45] VITALS: BP 117/75
== END 2019-11-25 14:05 | disposition home or self-care (01) ==
LOC: M OPP 11:07
PROVIDERS: ATTEND Surgery
DX: Z12.11 Encounter for screening for malignant neoplasm of colon (principal); K64.0 First degree hemorrhoids; Z79.899 Other long term (current) drug therapy; Z88.8 Allergy status to other drugs, medicaments and biological substances

== ENCOUNTER → 2020-08-12 | Outpatient (CLI) | payer MEDICARE ==
[~2020-08-12] MED LIST changes: -FLUO10CA15 PO; +FLUO10CA16 PO; -NS 1,000 ML IV ONE
[2020-08-12 13:38] LABS: ALBUMIN 3.6 GM/DL (3.2-5.2); ALT/SGPT 20 U/L (12-78); BILIRUBIN,TOTAL 0.6 MG/DL (0.2-1.0); BLOOD UREA NITROGEN 17 MG/DL (7-18); CALCIUM LEVEL 8.9 MG/DL (8.5-10.1); CARBON DIOXIDE LEVEL 27 MEQ/L (21-32); CHLORIDE LEVEL 104 MEQ/L (98-107); CHOLESTEROL LEVEL 162 MG/DL (<200); CHOLESTEROL RISK RATIO 2.076 (<5); CREATININE FOR GFR 0.75 MG/DL (0.55-1.30); GLOMERULAR FILTRATION RATE > 60.0 (>51); GLUCOSE, FASTING 73 MG/DL (70-100); HDL CHOLESTEROL 78 MG/DL (>40); LDL CHOLESTEROL 67 MG/DL (<100); NON-HDL-C 84 MG/DL; POTASSIUM SERUM 4.1 MEQ/L (3.5-5.1); SODIUM LEVEL 140 MEQ/L (136-145); TOTAL PROTEIN 6.6 GM/DL (6.4-8.2); TRIGLYCERIDES LEVEL 87 MG/DL (<150)
== END ==
LOC: M WUC 08:44
PROVIDERS: ATTEND Nurse Practitioner Family
DX: Z00.00 Encounter for general adult medical examination without abnormal findings (principal); Z79.899 Other long term (current) drug therapy

== ENCOUNTER → 2020-09-06 | Outpatient (REF) | payer MEDICARE | LOC: M SFHCWAGY 13:59 | PROVIDERS: ATTEND Specialist | DX: Z12.4 Encounter for screening for malignant neoplasm of cervix (principal) | CPT/HCPCS: 87624; G0123 ==

== ENCOUNTER → 2020-11-15 | Outpatient (CLI) | payer MEDICARE ==
--- NOTE | 2020-11-15 10:56 | REPMRS ---
Patient History The patient states she had a clinical breast exam in August 2020. No known family history of cancer. Taking hormonal contraceptives for 16 years. 10 lb intentional weight loss. Pfizer vaccine #1 09/23/20 left arm. #2 08/21/20 left arm. Patient states no breast complaints today. Patient has signed MRS History Sheet. Digital Woman Screen Mammo: November 15, 2020 - Exam #: [id number] Bilateral CC and MLO view(s) were taken. Technologist: RT Skylar Prior study comparison: November 05, 2019, right breast diagnostic unilateral mammo performed at [facility]. October 27, 2019, bilateral digital woman screen mammo performed at [facility]. September 11, 2018, bilateral digital woman screen mammo performed at [facility]. September 05, 2017, digital woman screen mammo performed at [facility]. FINDINGS: The breast tissue is heterogeneously dense. This may lower the sensitivity of mammography. The Volpara volumetric breast density category is: C. The small nodular density previously identified in the upper outer quadrant on the right is no longer visible. There is a moderate amount of heterogeneously dense fibroglandular tissue which is fairly symmetric. There is no interval development of dominant mass, architectural distortion, or grouped microcalcification typical of malignancy. There has been no change in the appearance of the mammogram from the prior studies. 3-D tomosynthesis shows no additional findings. Assessment: BI-RADS/ACR category 1 mammogram. Negative Mammogram. Recommendation Routine screening mammogram of both breasts in 1 year (for women over age 40). This patient's [facility] Lifetime Breast Cancer RIsk is estimated at 10.5 %. This mammogram was interpreted with the aid of an FDA-approved computer-aided dectection system. Electronically Signed By: Jean Pierre Canada MD 11/15/20 0321
== END ==
LOC: M WHC 07:20
PROVIDERS: ATTEND Specialist
DX: Z12.31 Encounter for screening mammogram for malignant neoplasm of breast (principal); R63.4 Abnormal weight loss

== ENCOUNTER → 2021-08-14 | Outpatient (CLI) | payer MEDICARE ==
[~2021-08-14] MED LIST changes: +FLUO-96 PO; -FLUO10CA16 PO; +FLUO10CA18 PO; -FLUO20CA20 PO
[2021-08-14 12:48] LABS: ALBUMIN 3.2 GM/DL (3.2-5.2); ALT/SGPT 23 U/L (12-78); BILIRUBIN,TOTAL 0.3 MG/DL (0.2-1.0); BLOOD UREA NITROGEN 20 MG/DL (7-18); CALCIUM LEVEL 8.6 MG/DL (8.5-10.1); CARBON DIOXIDE LEVEL 25 MEQ/L (21-32); CHLORIDE LEVEL 106 MEQ/L (98-107); CHOLESTEROL LEVEL 141 MG/DL (<200); CHOLESTEROL RISK RATIO 2.169 (<5); CREATININE FOR GFR 0.74 MG/DL (0.55-1.30); GLOMERULAR FILTRATION RATE > 60.0 (>51); GLUCOSE, FASTING 79 MG/DL (70-100); HDL CHOLESTEROL 65 MG/DL (>40); LDL CHOLESTEROL 44 MG/DL (<100); NON-HDL-C 76 MG/DL; POTASSIUM SERUM 4.4 MEQ/L (3.5-5.1); SODIUM LEVEL 138 MEQ/L (136-145); TOTAL PROTEIN 6.3 GM/DL (6.4-8.2); TRIGLYCERIDES LEVEL 162 MG/DL (<150)
== END ==
LOC: M WUC 08:55
PROVIDERS: ATTEND Nurse Practitioner Family
DX: Z00.00 Encounter for general adult medical examination without abnormal findings (principal); Z79.899 Other long term (current) drug therapy

== ENCOUNTER → 2021-09-11 | Outpatient (CLI) | payer MEDICARE | LOC: M WHC 09:52 | PROVIDERS: ATTEND Specialist | DX: Z12.31 Encounter for screening mammogram for malignant neoplasm of breast (principal) ==

== ENCOUNTER → 2021-09-11 | Outpatient (REF) | payer MEDICARE | LOC: M SFHCPLAZ 12:44 | PROVIDERS: ATTEND Specialist | DX: Z01.419 Encounter for gynecological examination (general) (routine) without abnormal findings (principal); R87.612 Low grade squamous intraepithelial lesion on cytologic smear of cervix (LGSIL) | CPT/HCPCS: 87624; G0123 ==

== ENCOUNTER → 2021-10-30 | Outpatient (REF) | payer MEDICARE | LOC: M SFHCWAGY 16:59 | PROVIDERS: ATTEND Specialist | DX: N84.1 Polyp of cervix uteri (principal) ==

== ENCOUNTER → 2021-10-31 | Outpatient (CLI) | payer MEDICARE | LOC: M PLAIMG 11:44 | PROVIDERS: ATTEND Nurse Practitioner Family | DX: M53.3 Sacrococcygeal disorders, not elsewhere classified (principal); M51.36 Other intervertebral disc degeneration, lumbar region; M51.86 Other intervertebral disc disorders, lumbar region ==

== ENCOUNTER → 2021-11-17 | Outpatient (CLI) | payer MEDICARE | LOC: M WHC 07:20 | PROVIDERS: ATTEND Specialist | DX: Z12.31 Encounter for screening mammogram for malignant neoplasm of breast (principal); R92.8 Other abnormal and inconclusive findings on diagnostic imaging of breast ==

== ENCOUNTER → 2021-11-30 | Outpatient (CLI) | payer MEDICARE | LOC: M WHC 14:30 | PROVIDERS: ATTEND Specialist | DX: R92.8 Other abnormal and inconclusive findings on diagnostic imaging of breast (principal) | CPT/HCPCS: 77065; G0279 ==

== ENCOUNTER → 2022-08-24 | Outpatient (CLI) | payer MEDICARE ==
[2022-08-24 10:39] LABS: ALBUMIN 3.5 G/DL (3.2-5.2); ALKALINE PHOSPHATASE 53 U/L (46-116); ALT/SGPT 17 U/L (7.0-40); AST/SGOT 22 U/L (<34); BILIRUBIN,TOTAL 0.6 MG/DL (0.3-1.2); BLOOD UREA NITROGEN 19 MG/DL (9-23); CALCIUM LEVEL 8.5 MG/DL (8.5-10.1); CARBON DIOXIDE LEVEL 27 MMOL/L (20-31); CHLORIDE LEVEL 107 MMOL/L (98-107); CHOLESTEROL LEVEL 145 MG/DL (<200); CHOLESTEROL RISK RATIO 2.36 (<5); CREATININE FOR GFR 0.76 MG/DL (0.55-1.30); GLOMERULAR FILTRATION RATE > 60.0 (>51); GLUCOSE, FASTING 68 MG/DL (60-100); HDL CHOLESTEROL 61.2 MG/DL (>40); LDL CHOLESTEROL 64.2 MG/DL (<100); NON-HDL-C 84 MG/DL; POTASSIUM SERUM 4.5 MMOL/L (3.5-5.1); SODIUM LEVEL 141 MMOL/L (136-145); TOTAL PROTEIN 6.4 G/DL (5.7-8.2); TRIGLYCERIDES LEVEL 98 MG/DL (<150)
== END ==
LOC: M WUC 08:13
PROVIDERS: ATTEND Nurse Practitioner Family
DX: E78.5 Hyperlipidemia, unspecified (principal)

== ENCOUNTER → 2022-11-27 | Outpatient (REF) | payer MEDICARE | LOC: M SFHCWAGY 13:23 | PROVIDERS: ATTEND Specialist | DX: Z12.4 Encounter for screening for malignant neoplasm of cervix (principal); R87.610 Atypical squamous cells of undetermined significance on cytologic smear of cervix (ASC-US) | CPT/HCPCS: 87624; G0123 ==

== ENCOUNTER → 2022-12-11 | Outpatient (CLI) | payer MEDICARE | LOC: M WHC 08:10 | PROVIDERS: ATTEND Specialist | DX: Z12.31 Encounter for screening mammogram for malignant neoplasm of breast (principal) ==

== ENCOUNTER → 2022-12-27 | Outpatient (CLI) | payer MEDICARE | LOC: M WHC 08:11 | PROVIDERS: ATTEND Specialist | DX: R92.2 Inconclusive mammogram (principal) | CPT/HCPCS: 76642; 77065; G0279 ==

== ENCOUNTER → 2023-05-16 | Outpatient (CLI) | payer MEDICARE ==
[2023-05-16 11:15] LABS: BASO # 0.1 10^3/uL (0.0-0.2); BASO % 1.2 % (0.0-1.0); EOS # 0.1 10^3/uL (0.0-0.5); EOS % 2.6 % (0.0-3.0); HEMATOCRIT 39.3 % (36.0-47.0); HEMOGLOBIN 13.6 g/dl (12.0-15.5); LYMPH # 0.9 10^3/uL (1.5-5.0); LYMPH % 21.4 % (24.0-44.0); MEAN CORPUSCULAR HEMOGLOBIN 35.1 pg (27.0-33.0); MEAN CORPUSCULAR HGB CONC 34.6 g/dl (32.0-36.5); MEAN CORPUSCULAR VOLUME 101.6 fl (80.0-96.0); MONO # 0.6 10^3/uL (0.0-0.8); MONO % 14.9 % (2.0-8.0); NEUTROPHILS # 2.6 10^3/uL (1.5-8.5); NEUTROPHILS % 59.7 % (36.0-66.0); PLATELET COUNT, AUTOMATED 274 10^3/uL (150-450); RED BLOOD COUNT 3.87 10^6/uL (4.00-5.40); WHITE BLOOD COUNT 4.3 10^3/uL (4.0-10.0)
[2023-05-16 11:47] LABS: BLOOD UREA NITROGEN 29 MG/DL (9-23); CALCIUM LEVEL 8.9 MG/DL (8.5-10.1); CARBON DIOXIDE LEVEL 29 MMOL/L (20-31); CHLORIDE LEVEL 106 MMOL/L (98-107); CREATININE FOR GFR 0.77 MG/DL (0.55-1.30); GLOMERULAR FILTRATION RATE > 60.0 (>51); GLUCOSE, FASTING 76 MG/DL (60-100); POTASSIUM SERUM 4.5 MMOL/L (3.5-5.1); SODIUM LEVEL 141 MMOL/L (136-145)
== END ==
LOC: M WUC 08:08
PROVIDERS: ATTEND Nurse Practitioner Family
DX: Z01.818 Encounter for other preprocedural examination (principal)

== ENCOUNTER → 2023-07-09 | Outpatient (CLI) | payer MEDICARE | LOC: M WHC 09:27 | PROVIDERS: ATTEND Specialist | DX: R92.8 Other abnormal and inconclusive findings on diagnostic imaging of breast (principal); N64.89 Other specified disorders of breast | CPT/HCPCS: 77065; G0279 ==

== ENCOUNTER → 2023-09-27 | Outpatient (CLI) | payer MEDICARE | LOC: M SOG 15:26 | PROVIDERS: ATTEND Physician Assistant | DX: M25.531 Pain in right wrist (principal) ==

== ENCOUNTER 2023-10-25 06:06 | Day surgery (SDC) | payer MEDICARE ==
[~2023-10-25] VITALS: Ht 154.9 cm; Wt 57.5 kg
[~2023-10-25 06:06] MED LIST changes: +CYAN500T14 PO; +FLUO-290 PO; -FLUO10CA18 PO; +GABA-284 PO; +LIDOCAINE W/EPINEPHRINE 1% 20ML VIAL XX ONE; +METR1GEL TOP; +SODIUM BICARBONATE 8.4% INJ 50MEQ 50ML VIAL XX ONE; +THERTAB52 PO; +VITA-243 PO; +ZINC50TA14 PO; +collagen PO
[2023-10-25] MEDS: BACITRACIN OINTMENT 30GM TUBE As Ordered ONE (08:04)
[2023-10-25 08:09] VITALS: BP 120/74; TEMP 97.9; O2SAT 99
== END 2023-10-25 08:34 | disposition home or self-care (01) ==
LOC: M SDC 06:06
PROVIDERS: ATTEND Orthopaedic Surgery Hand Surgery
DX: M65.4 Radial styloid tenosynovitis [de Quervain] (principal); M25.531 Pain in right wrist

== ENCOUNTER → 2023-12-05 | Outpatient (REF) | payer MEDICARE ==
[~2023-12-05] MED LIST changes: -LIDOCAINE W/EPINEPHRINE 1% 20ML VIAL XX ONE; -SODIUM BICARBONATE 8.4% INJ 50MEQ 50ML VIAL XX ONE
[2023-12-07 12:04] LABS: HPV APTIMA Not Detected (Not Detected)
== END ==
LOC: M SFHCWAGY 13:32
PROVIDERS: ATTEND Specialist
DX: Z12.4 Encounter for screening for malignant neoplasm of cervix (principal); N95.2 Postmenopausal atrophic vaginitis
CPT/HCPCS: 87624; G0123

== ENCOUNTER → 2023-12-13 | Outpatient (CLI) | payer MEDICARE | LOC: M WHC 07:44 | PROVIDERS: ATTEND Specialist | DX: Z12.31 Encounter for screening mammogram for malignant neoplasm of breast (principal) ==

== ENCOUNTER → 2024-08-25 | Outpatient (CLI) | payer MEDICARE ==
[~2024-08-25] MED LIST changes: +GABA-1490 PO; -GABA600T4 PO
[2024-08-25 11:05] LABS: ALBUMIN 3.5 G/DL (3.2-5.2); ALKALINE PHOSPHATASE 80 U/L (35-104); ALT/SGPT 15 U/L (7.0-40); AST/SGOT 22 U/L (<34); BASO # 0.1 10^3/uL (0.0-0.2); BASO % 1.1 % (0.0-1.0); BILIRUBIN,TOTAL 0.5 MG/DL (0.3-1.2); BLOOD UREA NITROGEN 24 MG/DL (9-23); CALCIUM LEVEL 8.4 MG/DL (8.5-10.1); CARBON DIOXIDE LEVEL 30 MMOL/L (20-31); CHLORIDE LEVEL 106 MMOL/L (98-107); CHOLESTEROL LEVEL 148 MG/DL (<200); CHOLESTEROL RISK RATIO 1.83 (<5); CREATININE FOR GFR 0.72 MG/DL (0.55-1.30); EOS # 0.1 10^3/uL (0.0-0.5); GLOMERULAR FILTRATION RATE > 60.0 (>51); GLUCOSE, FASTING 84 MG/DL (60-100); HDL CHOLESTEROL 80.7 MG/DL (>40); HEMATOCRIT 39.1 % (36.0-47.0); LDL CHOLESTEROL 50.3 MG/DL (<100); LYMPH # 0.6 10^3/uL (1.5-5.0); LYMPH % 11.7 % (24.0-44.0); MEAN CORPUSCULAR HEMOGLOBIN 34.9 pg (27.0-33.0); MEAN CORPUSCULAR HGB CONC 33.2 g/dl (32.0-36.5); MEAN CORPUSCULAR VOLUME 105.1 fl (80.0-96.0); MONO # 0.5 10^3/uL (0.0-0.8); MONO % 9.1 % (2.0-8.0); NEUTROPHILS # 4.2 10^3/uL (1.5-8.5); NEUTROPHILS % 75.9 % (36.0-66.0); NON-HDL-C 67.3 MG/DL; PLATELET COUNT, AUTOMATED 266 10^3/uL (150-450); POTASSIUM SERUM 4.3 MMOL/L (3.5-5.1); RED BLOOD COUNT 3.72 10^6/uL (4.00-5.40); SODIUM LEVEL 144 MMOL/L (136-145); TOTAL PROTEIN 6.3 G/DL (5.7-8.2); TRIGLYCERIDES LEVEL 85 MG/DL (<150); WHITE BLOOD COUNT 5.5 10^3/uL (4.0-10.0)
== END ==
LOC: M WUC 08:10
PROVIDERS: ATTEND Nurse Practitioner Family
DX: Z00.00 Encounter for general adult medical examination without abnormal findings (principal); Z79.899 Other long term (current) drug therapy

== ENCOUNTER → 2024-10-20 | Outpatient (CLI) | payer MEDICARE | LOC: M PLAIMG 14:06 | PROVIDERS: ATTEND Family Medicine | DX: M54.50 Low back pain, unspecified (principal) ==

== ENCOUNTER → 2024-12-30 | Outpatient (CLI) | payer MEDICARE ==
[~2024-12-30] MED LIST changes: -AMBI10TA PO; +ZOLP-533 PO
== END ==
LOC: M WHC 10:17 → MERGE 10:30
PROVIDERS: ATTEND Specialist
DX: R92.8 Other abnormal and inconclusive findings on diagnostic imaging of breast (principal); N60.11 Diffuse cystic mastopathy of right breast
CPT/HCPCS: 76642; 77065; G0279